=== PATIENT | female | born 1980 | race Caucasian/White ===

== ENCOUNTER 2024-03-03 11:51 | Emergency (ER) | payer BC, SELFPAY ==
[2024-03-03 11:57] VITALS: BP 137/83
[2024-03-03 12:06] VITALS: BP 107/75
[2024-03-03 12:11] VITALS: BMI 37.1
[2024-03-03 12:25] LABS: % Basophils 0.7 % (0-2); % Eosinophils 1.9 % (0-6); % Immature Granulocytes 0.3 % (0-0.5); % Lymphocytes 25.7 % (20.5-51.1); % Monocytes 4.2 % (1.7-9.3); % Neutrophils 67.2 % (42.2-75.2); Absolute Basophils 0.1 10^3/uL (0-0.2); Absolute Eosinophils 0.2 10^3/uL (0-0.7); Absolute Lymphocytes 2.7 10^3/uL (1.2-3.4); Absolute Monocytes 0.4 10^3/uL (0.1-0.6); Absolute Neutrophils 7.1 10^3/uL (1.4-6.5); Hematocrit 43.4 % (37.0-47.0); Hemoglobin 15.6 g/dL (12.0-16.0); Mean Corp Hgb Conc. 35.9 g/dL (33.0-37.0); Mean Corpuscular Hgb 30.2 pg (27.0-31.0); Mean Corpuscular Volume 83.9 fL (81.0-99.0); Nucleated Red Blood Cells % 0 %; Platelet Count 339 10^3/uL (130-400); Red Blood Cell Count 5.17 10^6/uL (4.20-5.40); White Blood Cell Count 10.5 10^3/uL (4.8-10.8)
[2024-03-03] MEDS: DILAUDID 0.5 MG IV ×2 (12:31→12:58)
[2024-03-03] MEDS: ZOFRAN 4 MG IV (12:32)
[2024-03-03] MEDS: NSS 1000 IV (12:39)
[2024-03-03 12:52] LABS: ALT (SGPT) 22 U/L (0-35); AST (SGOT) 22 U/L (14-36); Albumin 4.1 g/dl (3.5-5.0); Alkaline Phosphatase 61 U/L (38-126); Blood Urea Nitrogen 12 mg/dl (7-17); Calcium 9.5 mg/dl (8.4-10.2); Carbon Dioxide 19 mmol/L (22-30); Chloride 107 mmol/L (98-107); Estimated Creatinine Clearance 97 ml/min; Glucose 139 mg/dl (70-99); Lipase 326 U/L (23-300); Potassium 3.9 mmol/L (3.5-5.1); Sodium 136 mmol/L (135-145); Total Bilirubin 0.5 mg/dl (0.2-1.3); Total Protein 6.6 g/dl (6.3-8.2); eGFR > 60.00
[2024-03-03 13:17] LABS: HCG, Serum Qualitative Screen Negative
[2024-03-03 13:20] LABS: Troponin I < 0.012 ng/ml
--- NOTE | 2024-03-03 14:28 | ED.GENMED ---
History of Present Illness
General
Chief Complaint: Chest Pain
Source: patient and family (Mother)
Exam Limitations: none
Time Seen by Provider: 03/03/24 12:20
History of Present Illness
History of Present Illness:
Vague lower abdominal discomfort with watery diarrhea yesterday. The symptoms however resolved. In the middle of the night, around 2 AM she developed right upper quadrant pain with radiation to the back and some radiation up to her chest. Pain is
severe in nature. She had a similar episode about 6 months ago that was somewhat the same but a little more epigastric. Etiology of that was unknown. She was evaluated with labs and CTs at that time. Denies pleuritic pain denies other complaints
Past History
Past History
ED Past Medical History: Psychiatric (ADHD/anxiety/depression)
ED Past Surgical History: Appendectomy, Cholecystectomy and
Phy Exam
Physical Exam
Physical Exam:
GENERAL: Alert and oriented in no apparent distress. Nontoxic but moaning in pain. Curled on her right side
EYE: Orbits normal.
NECK: Supple
CARDIAC: Regular rate and rhythm without any obvious murmurs.
LUNGS: Clear breath sounds,normal
ABDOMEN: Soft, bowel sounds present. Elevated BMI. Moderate tenderness right upper quadrant and mild epigastric tenderness
NEUROLOGICAL: Alert and oriented , grossly non-focal
SKIN: Warm and dry, no rash or lesion, no discoloration, skin intact.
MUSCULOSKELETAL: No edema,no deformity.Good color
PSYCH: Normal and appropriate interaction..
Scores
Heart Score for Chest Pain Patients
STEMI patient?: Not applicable
Course
Orders/Labs/Results
Orders:
Orders
03/03/24 11:52
Electrocardiogram (*1) Urgent
Reason for Study: Chest Pain
EKG- Treatment ONCE
03/03/24 12:20
Complete Blood Count/With Diff Urgent
Comprehensive Metabolic Panel Urgent
HCG, Serum Qualitative Screen Urgent
Lipase Urgent
03/03/24 12:26
IV Insert/Care/Rem.- Treatment PRN
0.9% Sodium Chloride 1000 ml [Nss] 1,000 ml IV BOLUS
HYDROmorphone [Dilaudid] 0.5 mg IV NOW STA
Ondansetron Injectable [Zofran] 4 mg IV NOW STA
03/03/24 12:27
Add On- LAB Urgent
Tests Added?: qual [facility] [place] Abd/Pel (IV only)-DH only Urgent
Comment:
Reason For Exam: Severe upper abdominal pain radiation to the back
03/03/24 12:46
Troponin I Urgent
03/03/24 12:49
Ketorolac [Toradol] 15 mg .ROUTE .STK-MED ONE
03/03/24 12:51
Ketorolac [Toradol] 15 mg IV NOW STA
03/03/24 12:56
HYDROmorphone [Dilaudid] 0.5 mg .ROUTE .STK-MED ONE
03/03/24 12:57
HYDROmorphone [Dilaudid] 0.5 mg IV NOW STA
Abnormal Lab Results
03/03/24
12:20
Absolute Neuts (auto) 7.1 H 10^3/uL
(1.4-6.5)
Carbon Dioxide 19 L mmol/L
(22-30)
Glucose 139 H mg/dl
(70-99)
Lipase 326 H U/L
(23-300)
03/03/24 12:20
03/03/24 12:20
Vital Signs
Initial and Last Documented VS:
Initial Vital Signs
Temp Pulse Resp BP Pulse Ox
98.5 F 87 18 137/83 100
03/03/24 11:57 03/03/24 11:57 03/03/24 11:57 03/03/24 11:57 03/03/24 11:57
Last Documented Vital Signs
Temp Pulse Resp BP Pulse Ox
98.5 F 67 19 142/73 96
03/03/24 11:57 03/03/24 15:00 03/03/24 15:18 03/03/24 16:24 03/03/24 15:18
MDM/Problems Addressed
Differential Diagnosis Includes:
Clearly tender in the right upper quadrant. Very low suspicion for cardiac or chest issue. EKG normal. Troponin normal. Workup in progress.
*Radiology
Radiology exam reviewed: radiology read reviewed (Under distention versus colitis)
*Pulse Oximetry
Patient hypoxic: no
*EKG
Interpreted by ED Provider?: Yes
Interpretation: normal
Comparison EKG: no comparison EKG present
Heart Rate: 70
Rate: normal
Rhythm: sinus
[place]: normal axis
Interval: normal interval
QRS Pattern: normal QRS
Ischemia: no ischemia
*Critical Care Note
Total Time (30-74mins, 75-104mins- exclusive of procedures): Not Applicable
Update Note
Update Note:
Patient appears much more comfortable and feels much better. However she has received a moderate amount of pain medication. A similar episode occurred 6 months ago in [place]. At that time she was discharged from the ER but no recurring episode
but did have follow-up colonoscopy and endoscopy without diagnosis. No further ER testing from a diagnostic value. I offered her admission versus outpatient follow-up. We will observe her for the next few hours. If the symptoms remain minimal
she will likely go home to follow-up. However if symptoms recur she will be admitted to the hospital
ED Attending Note
-
Portions of this chart may have been created with voice recognition software.� Occasional wrong word or��sound alike� substitutions may have occurred due to the inherent limitations of voice recognition software.
Discharge Plan
Departure
Patient Disposition: Admit
Presentation/result/management discussed w/ accepting MD/DO: Hospitalist
Patient with high blood pressure during this ER visit?: Yes
Discharge Problem:
Right upper quadrant abdominal pain
Instructions: Abdominal Pain, Adult ED
Prescriptions:
No Action
escitalopram oxalate [Lexapro] 20 mg Tablet
20 mg PO DAILY
Dyanavel XR 10 mg Tablet, Ir - Er, Biphasic 24hr
10 mg PO DAILY
Referrals:
Akshat Morrow MD [Active] - Follow up in 5-7 days
NONE,* [Family Provider] -
Activity Restrictions/Additional Instructions:
Light diet.
Call GI for close follow-up
Return with recurrence progression of pain or if pain is not resolved in 1 to 2 days
Interventions
Interventions:
*Risk Screen - Suicide Last Done: 03/03/24 12:17
*General Assessment Last Done: 03/03/24 12:17
*Neglect/Abuse Screening Last Done: 03/03/24 12:17
ED- Fall Risk Assessment Last Done: 03/03/24 12:22
*ED COVID-19 Vaccine History Last Done: 03/03/24 12:17
*Nursing Disposition Last Done: 03/03/24 16:24
ED- Cardiac Assessment Last Done: 03/03/24 12:21
Discharge Date and Time
Discharge Date/Time: 03/03/24 16:25
Print Language: PU[place] RICAN
[2024-03-03 16:24] VITALS: BP 142/73
== END 2024-03-03 16:25 | disposition home or self-care (01) ==
LOC: EMR 11:51
PROVIDERS: EMERGENCY PHYSICIAN Emergency Medicine
DX: R10.11 Right upper quadrant pain (principal); R19.7 Diarrhea, unspecified; R07.89 Other chest pain; R03.0 Elevated blood-pressure reading, without diagnosis of hypertension; F41.9 Anxiety disorder, unspecified; F32.A Depression, unspecified; F90.9 Attention-deficit hyperactivity disorder, unspecified type; Z90.49 Acquired absence of other specified parts of digestive tract
CPT/HCPCS: 99285; 96375; 96361; 96374; 74177; 80053; 83690; 84484; 84703; 85025; 93005; Q9967

== ENCOUNTER 2024-03-04 04:09 | Observation (INO) | payer BC, SELFPAY ==
[2024-03-04] VITALS (7 sets, daily range): BP systolic 119–152; BP diastolic 57–102; BMI 40.6; BMI 39.6
--- NOTE | 2024-03-04 01:36 | ED.GENMED ---
History of Present Illness
<ARMEN Coffey (Lenka) - Last Filed: 03/04/24 03:57>
General
Chief Complaint: Abdominal Pain
Source: patient and family (mother)
Exam Limitations: clinical condition (R-lying position)
Time Seen by Provider: 03/04/24 01:14
History of Present Illness
History of Present Illness:
Pt is a 43 yo female with past surgical hx of cholecystectomy (7 years ago) and appendectomy, and PMHx of ADHD, anxiety, depression who returns to the ED after prior discharge this afternoon ( 1630) with worsening RUQ pain and feelings of upper
abdominal bloating. Pt was discharged with minimal pain after receiving Toradol and Dilaudid 0.5mg. She was able to eat yogurt without emesis, but developed nausea. Pain worsened, pt unable to sleep. She did not take any medications while at home.
Localizes pain to directly under R ribs, described as sharp pressure with new onset burning. It radiates up through her chest and around to her R back. She has had minimal fluid intake, states her mouth feels very dry. Endorses dyspnea 2/2 pain.
Denies fevers, chills, diaphoresis, DURAN, dysphagia, pelvic pain, RLQ/LUQ/LLQ pain.
2d ago pt began with lower abdominal discomfort and one episode of watery stool. No BM since. She is passing flatus and burping.
She had a similar episode about 6 months ago that was somewhat the same but a little more epigastric. Etiology of that was unknown. She was evaluated with labs and CTs at that time, then f/u with GI for endoscopy and colonoscopy with no findings.
Mother of pt states when pt had her appendectomy the surgeon stated 'there were parasites inside the appendix'.
CTAP (03/03/24)
IMPRESSION:
No acute intra-abdominal abnormality. There is apparent wall thickening of the transverse and descending colon, likely due to underdistention, rather than long segment colitis.
Prior cholecystectomy.
Past History
<ARMEN Coffey (Lenka) - Last Filed: 03/04/24 03:57>
Past History
ED Past Medical History: Psychiatric (ADHD/anxiety/depression)
ED Past Surgical History: Appendectomy ('the surgeon said that parasites were found in the appendix'), Cholecystectomy (2017 in [place]) and
Social History
Living: with family
Phy Exam
<ARMEN Coffey (Lenka) - Last Filed: 03/04/24 03:57>
General Physical Exam
General Presentation: severe distress (pt laying in R-sided position moaning in pain)
General age: appears stated age
General Skin: warm and dry
General Habitus: obese
General Mental: anxious and tearful
General Hydration: other (MMM, but pt complaining of dry mouth)
Cardiovascular Exam
Cardiovascular Exam: regular rate/rhythm, no edema, no gallop and normal peripheral pulses
Pulmonary Exam
Pulmonary Exam: lungs clear, no respiratory distress, no rales, no rhonchi and no cough
Gastrointestinal Exam
Gastrointestinal Exam: tender (RUQ) and other (no tympany)
Palpation: left upper quadrant: No tenderness, left lower quadrant: No tenderness, right upper quadrant: Moderate tenderness and right lower quadrant: Minimal tenderness
Course
<ARMEN Coffey (Lenka) - Last Filed: 03/04/24 03:57>
Orders/Labs/Results
Orders:
Orders
03/04/24 01:43
US Abdomen Complete/Upper Urgent
Comment:
Reason For Exam: severe RUQ
03/04/24 02:00
Complete Blood Count/With Diff Urgent
Comprehensive Metabolic Panel Urgent
Lipase Urgent
03/04/24 02:02
Lactic Acid Urgent
03/04/24 02:06
HYDROmorphone [Dilaudid] 0.5 mg IV NOW STA
03/04/24 03:24
Urinalysis Reflex To Culture Urgent
Date Specimen was Collected: 03/04/24
Time Specimen was Collected: 03:20
Abnormal Lab Results
03/04/24
02:00
WBC 12.2 H 10^3/uL
(4.8-10.8)
Absolute Neuts (auto) 7.9 H 10^3/uL
(1.4-6.5)
Absolute Monos (auto) 0.8 H 10^3/uL
(0.1-0.6)
Carbon Dioxide 19 L mmol/L
(22-30)
03/04/24 02:00
03/04/24 02:00
Vital Signs
Initial and Last Documented VS:
Initial Vital Signs
Temp Pulse Resp BP Pulse Ox
97.4 F 76 30 152/102 96
03/04/24 00:28 03/04/24 00:28 03/04/24 00:28 03/04/24 00:28 03/04/24 00:28
Last Documented Vital Signs
Temp Pulse Resp BP Pulse Ox
97.4 F 78 16 130/63 97
03/04/24 00:28 03/04/24 02:18 03/04/24 02:18 03/04/24 02:18 03/04/24 02:18
<Kayden Cain, DO - Last Filed: 03/04/24 03:29>
Orders/Labs/Results
Orders:
Orders
03/04/24 01:43
US Abdomen Complete/Upper Urgent
Comment:
Reason For Exam: severe RUQ
03/04/24 02:00
Complete Blood Count/With Diff Urgent
Comprehensive Metabolic Panel Urgent
Lipase Urgent
03/04/24 02:02
Lactic Acid Urgent
03/04/24 02:06
HYDROmorphone [Dilaudid] 0.5 mg IV NOW STA
03/04/24 03:24
Urinalysis Reflex To Culture Urgent
Date Specimen was Collected: 03/04/24
Time Specimen was Collected: 03:20
Abnormal Lab Results
03/04/24
02:00
WBC 12.2 H 10^3/uL
(4.8-10.8)
Absolute Neuts (auto) 7.9 H 10^3/uL
(1.4-6.5)
Absolute Monos (auto) 0.8 H 10^3/uL
(0.1-0.6)
Carbon Dioxide 19 L mmol/L
(22-30)
03/04/24 02:00
03/04/24 02:00
Vital Signs
Initial and Last Documented VS:
Initial Vital Signs
Temp Pulse Resp BP Pulse Ox
97.4 F 76 30 152/102 96
03/04/24 00:28 03/04/24 00:28 03/04/24 00:28 03/04/24 00:28 03/04/24 00:28
Last Documented Vital Signs
Temp Pulse Resp BP Pulse Ox
97.4 F 78 16 130/63 97
03/04/24 00:28 03/04/24 02:18 03/04/24 02:18 03/04/24 02:18 03/04/24 02:18
<ARMEN Coffey (Lenka) - Last Filed: 03/04/24 03:57>
MDM/Problems Addressed
Differential Diagnosis Includes:
DDx: hepatitis vs constipation vs acute mesenteric ischemia
Pt in acute distress in room, laying in R-sided position gripping her RUQ, returning to ED 8 hours after discharge with worsening RUQ + nausea. No emesis, no systemic symptoms. Pt tender to RUQ upon palpation, but mild-moderately, pain
possibly OOP to exam. Will obtain complete abdominal U/S, repeat CBC/CMP to compare to prior, with possible lactic acid and CTA abdomen depending on findings of CBC/CMP and U/S.
Prior note from earlier visit suggested hospital admission if symptoms recur after discharge.
<Kayden Cain DO - Last Filed: 03/04/24 03:29>
MDM/Problems Addressed
Differential Diagnosis Includes:
DDx: hepatitis vs constipation vs acute mesenteric ischemia, Docolithiasis
Pt in acute distress in room, laying in R-sided position gripping her RUQ, returning to ED 8 hours after discharge with worsening RUQ + nausea. No emesis, no systemic symptoms. Pt tender to RUQ upon palpation, but mild-moderately, pain
possibly OOP to exam. Will obtain complete abdominal U/S, repeat CBC/CMP to compare to prior, with possible lactic acid and CTA abdomen depending on findings of CBC/CMP and U/S.
Prior note from earlier visit suggested hospital admission if symptoms recur after discharge.
<ARMEN Coffey (Lenka) - Last Filed: 03/04/24 03:57>
*Critical Care Note
Total Time (30-74mins, 75-104mins- exclusive of procedures): Not Applicable
<DO Omer Vega Last Filed: 03/04/24 03:29>
Patient Management
Social determinants of health affecting care: Living situation (Just moved to the area) and Strong social support
Discussion with other providers: Hospitalist
<ARMEN Coffey (Lenka) - Last Filed: 03/04/24 03:57>
Update Note
Update Note:
WBC increased from 10.5 (03/03, 1220) to 12.2 (03/04, 0200).
<Kayden Cain DO - Last Filed: 03/04/24 03:29>
Update Note
Update Note:
WBC increased from 10.5 (8/18, 1220) to 12.2 (03/04, 0200).
Comparison: CT abdomen and pelvis 03/03/2024
IMPRESSION:
no acute findings
Cholecystectomy. No significant ductal dilation
Diffuse increased hepatic echogenicity suggesting steatosis
Small hepatic cyst noted
Pancreas also appears increased in echogenicity which may be related to partial fatty infiltration demonstrated on CT.
Right kidney appears normal
No appreciable free fluid
Discussed this patient with the hospitalist. The patient to be brought in for continued observation and possible further testing.
ED Attending Note
<ARMEN Coffey (Lenka) - Last Filed: 03/04/24 03:57>
-
Portions of this chart may have been created with voice recognition software.� Occasional wrong word or��sound alike� substitutions may have occurred due to the inherent limitations of voice recognition software.
<Kayden Cain DO - Last Filed: 03/04/24 03:29>
ED Attending Note
Patient seen and examined by attending physician: Yes
I performed the substantive portion of visit, reviewed & personally made and approve the management plan that is documented in note by myself or MULUGETA.: Yes
ED Attending Note:
Pleasant 43-year-old female who presents with right upper quadrant abdominal pain. Was seen in the emergency department earlier today. Had a CAT scan. She received Toradol and Dilaudid. She was able to eat without issue but developed some nausea
and vomiting. She states that she was unable to sleep. She states that the pain is localized to under her right ribs. She reports it is similar to previous gallbladder pain but reports having a cholecystectomy years ago. She denies fever or
chills. She does not have any other abdominal pain. Patient has had no issues with bowel movements. Patient recently moved here from [place]. She does not have an established physicians in the area. CT scan reviewed. Patient was seen in
conjunction with the PA student. I have reviewed and agree with the history and treatment plan presented. On my independent physical exam, patient is awake, alert, and oriented x3, minimal acute distress after receiving a dose of Dilaudid. Heart
is regular rate and rhythm. Lungs are clear to auscultation bilaterally without wheezes rales or rhonchi present. Negative McBurney's point tenderness. Negative Mckeon sign. Good bowel sounds x 4 quadrants.
Plan is to admit patient for continued observation and further testing.
Discharge Plan
Departure
Patient Disposition: Admit
Date of Disposition: 03/04/24
Time of Disposition: 03:28
Admit to: Med/Surg
Presentation/result/management discussed w/ accepting MD/DO: Hospitalist
Discharge Problem:
Abdominal pain, Nausea & vomiting
Prescriptions:
No Action
escitalopram oxalate [Lexapro] 20 mg Tablet
20 mg PO DAILY
Dyanavel XR 10 mg Tablet, Ir - Er, Biphasic 24hr
10 mg PO DAILY
Referrals:
NONE,* [Family Provider] -
Interventions
Interventions:
*Risk Screen - Suicide Last Done: 03/04/24 00:28
*General Assessment Last Done: 03/04/24 01:36
*Neglect/Abuse Screening Last Done: 03/04/24 00:28
ED- Fall Risk Assessment Last Done: 03/04/24 02:21
*ED COVID-19 Vaccine History Last Done: 03/04/24 01:38
WU-Jcnexr-Lmqmnbmbyq Assessment Last Done: 03/04/24 02:21
Discharge Date and Time
Print Language: GREENLANDIC
--- NOTE | 2024-03-04 02:03 | EDRN ---
Blood obtained from R ACF without difficulty - pressure dressing applied. EDT came in to take pt to US however pt says she needs pain medication before she goes to US. Dr Cain has not evaluated pt yet - Dr Cain informed of pt's request.
[2024-03-04 02:06] LABS: % Basophils 0.7 % (0-2); % Eosinophils 2.8 % (0-6); % Immature Granulocytes 0.2 % (0-0.5); % Monocytes 6.6 % (1.7-9.3); % Neutrophils 64.7 % (42.2-75.2); Absolute Basophils 0.1 10^3/uL (0-0.2); Absolute Eosinophils 0.3 10^3/uL (0-0.7); Absolute Monocytes 0.8 10^3/uL (0.1-0.6); Absolute Neutrophils 7.9 10^3/uL (1.4-6.5); Hematocrit 42.1 % (37.0-47.0); Hemoglobin 14.9 g/dL (12.0-16.0); Mean Corp Hgb Conc. 35.4 g/dL (33.0-37.0); Mean Corpuscular Hgb 30.8 pg (27.0-31.0); Mean Platelet Volume 9.9 fL (7.4-10.4); Nucleated Red Blood Cells % 0 %; Platelet Count 307 10^3/uL (130-400); Red Blood Cell Count 4.84 10^6/uL (4.20-5.40); White Blood Cell Count 12.2 10^3/uL (4.8-10.8)
--- NOTE | 2024-03-04 02:07 | EDRN ---
Dr Cain informed labs were drawn as he ordered, pt stuck twice to obtain blood/iv. There is now an order for a lactic. Dr Cain said can wait to draw lactic until result of US.
[2024-03-04] MEDS: DILAUDID 0.5 MG IV ×5 (02:12→21:34)
--- NOTE | 2024-03-04 02:25 | EDRN ---
Pt developed RUQ pain 0300 yesterday morning associated with nausea, poor appetite. Pt came to ED yesterday morning and was evaluated for this pain. Pt says she was not given a diagnosis for her pain and has been having this pain 'for quite a
while' and no one has ever been able to tell her why she has it. Pt felt better and went home around 1700 yesterday however she said pain was never completely gone, just a lot better. Pt ate a yogurt and the pain worsened which prompted pt to
return to ED. Pt denies cp, sob, urinary symptoms, vomiting, diarrhea/constipation, fever/chills/cough. Pt has reddened around in R ACF most likely from tegaderm used yesterday on IV site. Discussed with VAT how to best secure new IV - this RN
cut small piece of tegaderm and placed just over iv catheter then applied paper tape.
[2024-03-04 02:41] LABS: ALT (SGPT) 23 U/L (0-35); AST (SGOT) 24 U/L (14-36); Albumin 4.2 g/dl (3.5-5.0); Alkaline Phosphatase 62 U/L (38-126); Blood Urea Nitrogen 8 mg/dl (7-17); Calcium 9.5 mg/dl (8.4-10.2); Carbon Dioxide 19 mmol/L (22-30); Chloride 107 mmol/L (98-107); Estimated Creatinine Clearance 115 ml/min; Glucose 99 mg/dl (70-99); Lipase 85 U/L (23-300); Sodium 136 mmol/L (135-145); Total Bilirubin 0.5 mg/dl (0.2-1.3); Total Protein 6.7 g/dl (6.3-8.2); eGFR > 60.00
[2024-03-04 03:31] LABS: Urine Albumin Negative (Neg - Trace); Urine Bilirubin Negative (Negative); Urine Character Clear (Clear); Urine Color Yellow; Urine Glucose Negative (Negative); Urine Ketone Negative (Negative); Urine Leukocyte Negative (Negative); Urine Nitrite Negative (Negative); Urine Occult Blood Negative (Negative); Urine Urobilinogen Negative (Neg - 1+)
--- NOTE | 2024-03-04 03:55 | HPS.HSE ---
Family Physician
-
Family Physician: * NONE
Chief Complaint
-
abdominal pain
History of Present Illness
43F HX ADHD, anxiety, depression, cholecystectomy (7 years ago) and appendectomy, seen at ER yesterday for abdominal pain: Associated upper abdominal bloating. Pt was discharged with minimal pain after receiving Toradol and Dilaudid 0.5mg. She
was able to eat yogurt without emesis, but developed nausea. Pain worsened, pt unable to sleep. She did not take any medications while at home.
return to ER with pain mre Localizes to directly under R ribs, described as sharp pressure with new onset burning. It radiates up through her chest and around to her R back. She has had minimal fluid intake, states her mouth feels very dry.
Endorses dyspnea 2/2 pain.
HX similar episode about 6 months ago that was somewhat the same but a little more epigastric but unclear etiolgy
Evaluated with labs and CTs at that time, then f/u with GI for endoscopy and colonoscopy with no findings
ROS
Denies fevers, chills, diaphoresis, DURAN, dysphagia, pelvic pain, RLQ/LUQ/LLQ pain.
Medical History
Past Medical History
Past Medical History: Reports Psychiatric (ADHD/anxiety/depression)
Past Surgical History: Reports Other (Appendectomy ('the surgeon said that parasites were found in the appendix'), Cholecystectomy (2017 in [place]) and )
Social History
Tobacco: Non-smoker
Alcohol: None
Living: With Family
Family History
Family History: Not pertinent
Allergies / Home Medications
Allergies reflects when Allergies were last updated in [facility].
Home Medications with original date entered in [facility]
Allergy/Medication List:
Allergies
Allergy/AdvReac Type Severity Reaction Status Date / Time
celecoxib [From Celebrex] Allergy Mild Unknown Verified 03/04/24 00:32
adhesive tape Allergy Unknown Verified 03/04/24 00:32
bupropion [From Wellbutrin] Allergy Unknown Verified 03/04/24 00:32
latex Allergy Unknown Verified 03/04/24 00:32
Home Medications
amphetamine 10 mg tablet, immediate and extended release 24 hour (Dyanavel XR) 10 mg PO DAILY 03/04/24
escitalopram oxalate 20 mg tablet (Lexapro) 20 mg PO DAILY 03/04/24
Review of Systems
-
Constitutional: Reports No Symptoms
EENT: Reports No Symptoms
Respiratory: Reports No Symptoms
Cardiac: Reports No Symptoms
Abdomen/GI: Reports See HPI and Abdominal Pain
: Reports No Symptoms
Musculoskeletal: Reports No Symptoms
Skin: Reports No Symptoms
Neurological: Reports No Symptoms
Endocrine: Reports No Symptoms
Hematologic/Lymphatic: Reports No Symptoms
Psych: Reports No Symptoms
Physical Exam
Vital Signs
Vital Signs
Temp Pulse Resp BP Pulse Ox
97.4 F 78 16 130/63 97
03/04/24 00:28 03/04/24 02:18 03/04/24 02:18 03/04/24 02:18 03/04/24 02:18
Physical Exam
General: Comfortable, Conversant and Obese
HEENT: NormoCephalic and Anicteric
Respiratory: Clear
Cardiac: S1/S2 and Regular Rhythm; No Murmur or Rub
GI: Soft, Non Tender, Non Distended and Normal Bowel Sounds; No Organomegaly
Rectal: Deferred by Provider
Musculoskeletal: No Clubbing, No Cyanosis and No Edema
Skin: No Rash
Neuro: Nonfocal/grossly intact
Psych: Calm
Laboratory Results
-
03/04/24 02:00
03/04/24 02:00
Laboratory Results
Total Bilirubin 0.5 mg/dl (0.2-1.3) 03/04/24 02:00
AST 24 U/L (14-36) 03/04/24 02:00
ALT 23 U/L (0-35) 03/04/24 02:00
Alkaline Phosphatase 62 U/L (38-126) 03/04/24 02:00
Lipase 85 U/L (23-300) 03/04/24 02:00
Data Reviewed
-
CT Scan: Report Reviewed by me
Lab Data: Labs Reviewed by me
Impression/Plan
-
Data
WCC 12.2
CO2 19
nl LFTs
NEG UA
CT AP
- No significant ductal dilatation
- cholecystectomy
- hepatic steatosis
NO PRIOR hospitalist admission:
ASSESSMENT & PLAN
Acute Abdominal pain of unclear etiolgy
- Mild leucocytosis
- Unremarkable labs
- Unremarkable CT AP
- hemodynamically stable
- Clear diet - ADAT
- PRN IV Toradol
- GI consult in AM
HX ADHD
- cont all OP Meds
DVT Px: LMWH
Code: Full code
Obs MS
[2024-03-04] MEDS: NSS 1000 IV ×2 (06:04→17:31)
[2024-03-04] MEDS: ZOFRAN 4 MG IV ×3 (06:04→21:35)
--- NOTE | 2024-03-04 08:47 | W.PN.HOSP.TC ---
Today's Communication/Plan
-
GI consult
continue IVF
continue clear liquids for now
Protonix for now
Assessment / Plan
Assessment / Plan
Acute Abdominal pain of unclear etiology
similar episode in [place] (pt moved to this area from [place] 1 wk [employer]) about 6 mos ago. Was seen by GI, underwent CT scan, US, and was seen by GI undergoing EGD and [place], all nl.
This episode pt had a hot dog at movie theatre Monday night (03/01) and developed diarrhea x2 Monday afternoon (diarrhea has fully resolved), with associated pain that started Monday and has continued. Seen in ER Monday, went
home, but pain continued and returned
- Mild leucocytosis
WBC 10.5-->12.2k
- CT of abd/pelvis: No acute intra-abdominal abnormality. There is apparent wall thickening of the transverse and descending colon, likely due to underdistention, rather than long segment colitis.
- hemodynamically stable
- Clear diet - ADAT
US pending
- PRN IV Toradol
- GI consulted
Hx of Cholecystectomy ~7 yrs [employer]
pain of similar nature, but was epigastric, current episode in [facility] pt
HX ADHD
- cont all OP Meds
Cigs -has been smoking >20 yrs, but has significantly reduced daily intake. Offered patch, pt declines
DVT Px: LMWH
Code: Full code
Obs MS
Anticipated Discharge: 24 - 48 hours
Subjective/Interval History
-
Date of Service: March 04, 2024
Still with RUQ pain
Objective Data
-
Labs:
Laboratory Results
03/04/24
02:00
WBC 12.2 H
Hgb 14.9
Hct 42.1
Plt Count 307
Sodium 136
Potassium 4.0
Chloride 107
Carbon Dioxide 19 L
BUN 8
Creatinine 0.8
Glucose 99
Calcium 9.5
Total Bilirubin 0.5
AST 24
ALT 23
Alkaline Phosphatase 62
Vital Signs:
Vital Signs
Temp Pulse Resp BP Pulse Ox
98.3 F 62 18 140/89 98
03/04/24 05:33 03/04/24 05:33 03/04/24 05:33 03/04/24 05:33 03/04/24 05:33
Review of Systems
-
History Source: Patient
Constitutional: Denies Fever
EENT: Reports No Symptoms Reported
Respiratory: Reports No Symptoms
Cardiac: Reports No Symptoms
Abdomen/GI: Reports Abdominal Pain and Diarrhea (last episode 03/02 mid afternoon); Denies Nausea or Vomiting
Musculoskeletal: Reports No Symptoms
Neuro: Reports No Symptoms
Physical Exam
-
General: Well Developed, Well Nourished and No Apparent Distress
HEENT: Normocephalic, Atraumatic and Moist Mucous Membranes
Respiratory: Clear to Auscultation; Negative Wheezes, Rales or Rhonchi
Cardiac: Regular Rhythm and S1/S2
GI: Soft and Tender; Negative Normal Bowel Sounds (decreased BS)
Musculoskeletal: No Clubbing, No Cyanosis and No Edema
Neuro: Awake, Alert and Oriented
[2024-03-04] MEDS: LEXAPRO 20 MG PO (08:51)
[2024-03-04] MEDS: PROTONIX IV 40 MG IV (09:32)
[2024-03-04] MEDS: NSS (PRESERVATIVE FREE) 10 ML IV (09:33)
--- NOTE | 2024-03-04 12:44 | CM ---
Addendum entered by Sanam Proctor RN 03/04/24 12:46:
The patient is admitted under observational status. The observation letter was provided and explained. The patient had no questions with regards to the letter.
Original Note:
Reviewed the chart notes and spoke with the patient at the bedside. The patient resides in a three story home with basement with her daughter and mother. The patient reports on DME is a CPAP machine. The patient reports no VN or SNF in the past.
The patient confirmed her pharmacy of choice is the [facility] [address]. CM continues to be available to patient/family and is monitoring medical plan for needs at discharge.
Plan: Discharge to home when medically stable. No anticipated needs identified at this time.
--- NOTE | 2024-03-04 13:48 | CON.GI ---
Addendum entered and electronically signed by Akshat Morrow MD 03/04/24 18:18:
I saw and examined the patient.
The TRANSIT OPERATIONS SUPERVISOR's note was reviewed and I agree with the note.
Abdominal pain -mainly right upper quadrant. History of cholecystectomy. Liver test/ lipase normal. Imaging grossly unremarkable other than fatty liver.no biliary dilatation . Etiology of pain not clear. Patient claims 6 months back she had
extensive GI workup for the similar symptom in [place] and they were unremarkable. No records available to review. Patient is currently on zepbound for the last 2 months
plan
Would recommend getting prior GI records from [place]
Patient claims she cannot tolerate Levsin. Will DC hyoscyamine and try dicyclomine as needed
low-fat diet
Will recommend discussing with PCP regarding use of zepbound in the future
Original Note:
Consultation
-
Date/Time Consultation Requested: 03/04/24 0520
Date/Time Consultation Performed: 03/04/24 1330
Requesting Provider: Selwyn Ashraf MD
Performing Provider: AMADOU Eugene, Akshat Morrow MD
Reason for Consultation: abdominal pain
Medical History
Chief Complaint / HPI
Chief Complaint: abdominal pain
History of Present Illness:
Pt is a 43yo with hx ADHD, anxiety, depression, adrián, appe with upper abdominal pain with bloating. On admission noted with WBC 12,200 with normal LFT's and lipase. Imaging with CT with no intraabdominal abnormality with wall thickening
transverse and descending with underdistention rather than colitis and prior adrián. In reviewing with patient she was noted with hx similar pain when gallbladder was removed several years ago. She states she was well for years then began with 6
month ago with similar pain and work up in [place]. She had multiple testing including, CT, US, EGD, colonoscopy all unrevealing. She admits about 2 months ago she started Zepbound and now presents with recurrent pain after [place] [employer]. She admits to diarrhea prior to admission that resolved. Pain she describes initially lower pain with diarrhea then RUQ pain with distended, sharp pressure with waves of worsening pain. Improved with pain meds. Worse at night and
with some positional pain. She also admits to some nausea and dry heave with pain. She has hx GERD worse with Zepbound and Pepcid was added. She denies dysphagia, vomiting, constipation or bleeding. Denies travel, abx and only new med was
Dyanavel.
Past Medical History
Past Medical History: Psychiatric (ADHD, depression)
Past Surgical History: Appendectomy and Cholecystectomy
Social History
Tobacco: Smoker (5-10 cig per day )
Alcohol: None
Drug: None
Personal:
Living: With Family
Employment: Employed
Family History
Family History: Other (grandmother with colon CA)
Allergies / Home Medications
Allergy/AdvReac Type Severity Reaction Status Date / Time
celecoxib [From Celebrex] Allergy Severe Anaphylaxis Verified 03/04/24 05:39
adhesive tape Allergy Unknown Verified 03/04/24 00:32
bupropion [From Wellbutrin] Allergy Unknown Verified 03/04/24 00:32
latex Allergy Unknown Verified 03/04/24 00:32
�Medication �Instructions �Recorded
amphetamine 10 mg tablet, 10 mg PO DAILY 03/04/24
immediate and extended release 24
hour (Dyanavel XR)
escitalopram oxalate 20 mg tablet 20 mg PO DAILY 03/04/24
(Lexapro)
Review of Systems
-
History Source: Patient
Constitutional: Reports Weight Loss ( 10 lbs with Zepbound )
EENT: Reports No Symptoms
Respiratory: Reports No Symptoms
Cardiac: Reports No Symptoms
Abdomen/GI: Reports Abdominal Pain, Nausea (dry heaves ) and Constipated
: Reports No Symptoms
Musculoskeletal: Reports No Symptoms
Skin: Reports No Symptoms
Neurological: Reports Weakness
Endocrine: Reports No Symptoms
Hematologic/Lymphatic: Reports No Symptoms
Vital Signs
Temp Pulse Resp BP Pulse Ox
98.0 F 60 18 126/66 95
03/04/24 07:45 03/04/24 07:45 03/04/24 07:45 03/04/24 07:45 03/04/24 07:45
Physical Exam
Exam
General: Well Developed, Well Nourished and No Apparent Distress
HEENT: Normocephalic and Anicteric
Respiratory: Clear and Wheezes
Cardiac: Regular Rhythm
GI: Soft, Non Tender and Non Distended
Musculoskeletal: No Clubbing and No Cyanosis
Skin: Warm and Dry
Neuro: Awake, Alert and AO x 3
Psych: Calm
Results
WBC 12.2 10^3/uL (4.8-10.8) H 03/04/24 02:00
Hgb 14.9 g/dL (12.0-16.0) 03/04/24 02:00
Hct 42.1 % (37.0-47.0) 03/04/24 02:00
MCV 87.0 fL (81.0-99.0) 03/04/24 02:00
Plt Count 307 10^3/uL (130-400) 03/04/24 02:00
Absolute Neuts (auto) 7.9 10^3/uL (1.4-6.5) H 03/04/24 02:00
Sodium 136 mmol/L (135-145) 03/04/24 02:00
Potassium 4.0 mmol/L (3.5-5.1) 03/04/24 02:00
Chloride 107 mmol/L (98-107) 03/04/24 02:00
Carbon Dioxide 19 mmol/L (22-30) L 03/04/24 02:00
BUN 8 mg/dl (7-17) 03/04/24 02:00
Creatinine 0.8 mg/dL (0.6-1.0) 03/04/24 02:00
Calcium 9.5 mg/dl (8.4-10.2) 03/04/24 02:00
Total Bilirubin 0.5 mg/dl (0.2-1.3) 03/04/24 02:00
AST 24 U/L (14-36) 03/04/24 02:00
ALT 23 U/L (0-35) 03/04/24 02:00
Alkaline Phosphatase 62 U/L (38-126) 03/04/24 02:00
Lipase 85 U/L (23-300) 03/04/24 02:00
Diagnostic Image Results:
03/03/24 CT Abd/Pel (IV only)-DH only
No acute intra-abdominal abnormality. There is apparent wall thickening of the transverse and descending colon, likely due to underdistention, rather than long segment colitis.
Prior cholecystectomy.
03/04/24 US abdomen
1. No evidence of cholelithiasis, acute cholecystitis, or biliary ductal dilation.
2. Suggestive of diffuse fatty infiltration of liver.
Prior GI Procedures:
EGD: pt recalls as normal 6 months ago
Colonoscopy: pt recalls as normal 6 months ago
Assessment / Plan
-
Pt is a 43yo with hx ADHD, anxiety, depression, adrián, appe with upper abdominal pain with bloating. On admission noted with WBC 12,200 with normal LFT's and lipase. Imaging with CT with no intraabdominal abnormality with wall thickening
transverse and descending with underdistention rather than colitis and prior adrián. In reviewing with patient she was noted with hx similar pain when gallbladder was removed several years ago. She states she was well for years then began with 6
month ago with similar pain and work up in [place]. She had multiple testing including, CT, US, EGD, colonoscopy all unrevealing. She admits about 2 months ago she started Zepbound and now presents with recurrent pain after eating a [place] [employer]. She admits to diarrhea prior to admission that resolved. Pain she describes initially lower pain with diarrhea then RUQ pain with distended, sharp pressure with waves of worsening pain. Improved with pain meds. Worse at night and
with some positional pain. She also admits to some nausea and dry heave with pain. She has hx GERD worse with Zepbound and Pepcid was added. She denies dysphagia, vomiting, constipation or bleeding. Denies travel, abx and only new med was
Dyanavel.
-RUQ abdominal pain
-recent lower abdominal pain with diarrhea
-CT with underdistention vs transverse/descending colitis
-mild leukocytosis
-hx similar pain 6 months ago with extensive work up
-prior adrián
-appe
-recent wt loss with use of Zepbound
-GERD with increased symptoms with Zepbound use
PLAN:
etiology of symptoms unclear -- possible colitis per CT vs underdistention- infectious related, med related pt started Zepbound but pt was not on medication with similar episode 6 months ago vs Dyanavel related at does list some risk of upper
abdominal pain , muscular related vs other - doubt biliary with normal LFT's and lipase
pt currently with some improved pain
pt asking for increased diet-- will trial low fat diet
repeat LFT's and lipase in am
add Hyoscyamine PRN
consider OP Small bowel imaging if symptoms persist
if continue symptoms consider reviewed with primary MD for side effects of Zepbound and Dyanavel
trend WBC's with some elevation
will follow
-
-
-
Thank you for consultation and allowing me to participate in the patient's care. Please call the recycling operations manager GI physician during the after hours with any questions or concerns.
[2024-03-04] MEDS: TYLENOL 650 MG PO (17:35)
[2024-03-04] MEDS: BENTYL 20 MG PO (21:43)
[2024-03-05] MEDS: DILAUDID 0.5 MG IV ×4 (02:10→17:59)
[2024-03-05 07:40] VITALS: BP 134/83
[2024-03-05] MEDS: ZOFRAN 4 MG IV ×2 (08:42→17:59)
[2024-03-05] MEDS: NSS 1000 IV (08:42)
[2024-03-05] MEDS: BENTYL 20 MG PO ×3 (08:44→21:36)
[2024-03-05] MEDS: NSS (PRESERVATIVE FREE) 10 ML IV (08:44)
[2024-03-05] MEDS: LEXAPRO 20 MG PO (08:44)
[2024-03-05] MEDS: PROTONIX IV 40 MG IV (08:44)
[2024-03-05 08:58] LABS: Hematocrit 44.7 % (37.0-47.0); Hemoglobin 15.5 g/dL (12.0-16.0); Mean Corp Hgb Conc. 34.7 g/dL (33.0-37.0); Mean Corpuscular Volume 89.4 fL (81.0-99.0); Mean Platelet Volume 10.1 fL (7.4-10.4); Platelet Count 311 10^3/uL (130-400); Red Cell Dist. Width 13.2 % (11.5-14.5); White Blood Cell Count 8.6 10^3/uL (4.8-10.8)
[2024-03-05 09:32] LABS: ALT (SGPT) 25 U/L (0-35); AST (SGOT) 24 U/L (14-36); Albumin 3.8 g/dl (3.5-5.0); Alkaline Phosphatase 58 U/L (38-126); Blood Urea Nitrogen 10 mg/dl (7-17); Carbon Dioxide 23 mmol/L (22-30); Chloride 105 mmol/L (98-107); Estimated Creatinine Clearance 101 ml/min; Glucose 101 mg/dl (70-99); Lipase 100 U/L (23-300); Potassium 4.5 mmol/L (3.5-5.1); Sodium 137 mmol/L (135-145); Total Bilirubin 0.5 mg/dl (0.2-1.3); Total Protein 6.3 g/dl (6.3-8.2); eGFR > 60.00
--- NOTE | 2024-03-05 10:26 | W.PN.HOSP.TC ---
Today's Communication/Plan
-
MRCP
stop IVF
Assessment / Plan
Assessment / Plan
Acute Abdominal pain of unclear etiology
similar episode in [place] (pt moved to this area from [place] 1 wk [employer]) about 6 mos ago. Was seen by GI, underwent CT scan, US, and was seen by GI undergoing EGD and [place], all nl.
This episode pt [place] (03[place]01) and developed diarrhea x2 Monday afternoon (diarrhea has fully resolved), with associated pain that started Monday and has continued. Seen in ER Monday, went
home, but pain continued and returned
- Mild leucocytosis resolved
WBC 10.5-->12.2-->8.6k
LFT's nl x 2
- CT of abd/pelvis: No acute intra-abdominal abnormality. There is apparent wall thickening of the transverse and descending colon, likely due to underdistention, rather than long segment colitis.
- Clear diet -->chol reducing
US: 1. No evidence of cholelithiasis, acute cholecystitis, or biliary ductal dilation.
2. Suggestive of diffuse fatty infiltration of liver.
- PRN IV Toradol
- GI consulted, input appreciated
discussed with AMADOU Traore, requested I enter order for MRCP
etio of process remains unclear. Pt still in pain. ?does Zepbound play a roll in the pain (GLP-1 inhibitor)
Hx of Cholecystectomy ~7 yrs [employer]
pain of similar nature, but was epigastric, current episode in [facility] pt and slightly lateral
HX ADHD
- cont all OP Meds
Cigs -has been smoking >20 yrs, but has significantly reduced daily intake. Offered patch, pt declines
discussed importance of stopping, pt fully acknowledges
DVT Px: LMWH
Code: Full code
Obs MS
Anticipated Discharge: 24 - 48 hours
Subjective/Interval History
-
Date of Service: March 05, 2024
Still with severe RUQ abdominal pain, intensified ~3AM, +nausea, no vomiting or diarrhea
Objective Data
-
Labs:
Laboratory Results
03/05/24
08:34
WBC 8.6
Hgb 15.5
Hct 44.7
Plt Count 311
Sodium 137
Potassium 4.5
Chloride 105
Carbon Dioxide 23
BUN 10
Creatinine 0.9
Glucose 101 H
Calcium 9.0
Total Bilirubin 0.5
AST 24
ALT 25
Alkaline Phosphatase 58
Vital Signs:
Vital Signs
Temp Pulse Resp BP Pulse Ox
98.1 F 64 14 134/83 95
03/05/24 07:40 03/05/24 07:40 03/05/24 07:40 03/05/24 07:40 03/05/24 07:40
I&O
03/04/24 03/05/24 03/06/24
06:59 06:59 06:59
Intake Total 3520 / 3520
Balance 3520 / 3520
Review of Systems
-
History Source: Patient
Constitutional: Denies Fever
EENT: Reports No Symptoms Reported
Respiratory: Reports No Symptoms
Cardiac: Reports No Symptoms
Abdomen/GI: Reports Abdominal Pain, Nausea (this morning) and Diarrhea (last episode 03/02 mid afternoon); Denies Vomiting
Musculoskeletal: Reports No Symptoms
Neuro: Reports No Symptoms
Physical Exam
-
General: Well Developed, Well Nourished and No Apparent Distress
HEENT: Normocephalic, Atraumatic and Moist Mucous Membranes
Respiratory: Clear to Auscultation; Negative Wheezes, Rales or Rhonchi
Cardiac: Regular Rhythm and S1/S2
GI: Soft and Tender (remains very tender); Negative Normal Bowel Sounds (decreased BS, but more prominent than yesterday)
Musculoskeletal: No Clubbing, No Cyanosis and No Edema
Neuro: Awake, Alert and Oriented
--- NOTE | 2024-03-05 10:55 | CM ---
Reviewed the chart notes. MRCP order placed today. CM continues to be available to patient/family and is monitoring medical plan for needs at discharge.
Plan: Discharge to home when medically stable. No anticipated needs identified at this time.
--- NOTE | 2024-03-05 14:36 | W.PN.GI.CBS2 ---
Today's Communication / Plan
-
Await MRI/MRCP, but LFTs normal, lowering suspicion for CBD stone post adrián
Start miralax since she is constipated likely due to pain meds. It may be even contributing to pain
Post infectious IBS is possibility since sx started after eating hot dog at the [employer] on Monday
If w/u negative, consider EGD.
Cont Dicyclomine
Cont lexapro, can be helpful for IBS pain too.
Assessment / Plan
-
Pt is a 43yo with hx ADHD, anxiety, depression, adrián, appe with upper abdominal pain with bloating. On admission noted with WBC 12,200 with normal LFT's and lipase. Imaging with CT with no intraabdominal abnormality with wall thickening
transverse and descending with underdistention rather than colitis and prior ardián. In reviewing with patient she was noted with hx similar pain when gallbladder was removed several years ago. She states she was well for years then began with 6
month ago with similar pain and work up in [place]. She had multiple testing including, CT, US, EGD, colonoscopy all unrevealing. She admits about 2 months ago she started Zepbound and now presents with recurrent pain after eating a hot dog
at [place] [employer]. She admits to diarrhea prior to admission that resolved. Pain she describes initially lower pain with diarrhea then RUQ pain with distended, sharp pressure with waves of worsening pain. Improved with pain meds. Worse at night and
with some positional pain. She also admits to some nausea and dry heave with pain. She has hx GERD worse with Zepbound and Pepcid was added. She denies dysphagia, vomiting, constipation or bleeding. Denies travel, abx and only new med was
Dyanavel.
-RUQ abdominal pain
-recent lower abdominal pain with diarrhea
-CT with underdistention vs transverse/descending colitis
-mild leukocytosis
-hx similar pain 6 months ago with extensive work up
-prior adrián
-appe
-recent wt loss with use of Zepbound
-GERD with increased symptoms with Zepbound use
-
Subjective
Subjective
Date of Service: March 05, 2024
Still c/o RUQ pain, managed with pain meds. No BMs.
Objective
Data Reviewed
Laboratory Data:
Laboratory Results
03/05/24 08:34
03/05/24 08:34
Laboratory Results
Total Bilirubin 0.5 mg/dl (0.2-1.3) 03/05/24 08:34
AST 24 U/L (14-36) 03/05/24 08:34
ALT 25 U/L (0-35) 03/05/24 08:34
Alkaline Phosphatase 58 U/L (38-126) 03/05/24 08:34
Lipase 100 U/L (23-300) 03/05/24 08:34
Vital Signs and I&O:
Vital Signs
Temp Pulse Resp BP Pulse Ox
98.1 F 64 14 134/83 95
03/05/24 07:40 03/05/24 07:40 03/05/24 07:40 03/05/24 07:40 03/05/24 13:21
I&O
03/04/24 03/05/24 03/06/24
06:59 06:59 06:59
Intake Total 3520 / 3520
Balance 3520 / 3520
Physical Exam
Physical Exam
GI: Soft and Tender
[2024-03-05 15:15] VITALS: BP 132/85
[2024-03-05] MEDS: MIRALAX 17 GRAMS PO (15:20)
[2024-03-05] MEDS: SENOKOT-S 1 TABLET PO (21:41)
[2024-03-05 23:45] VITALS: BP 142/81
[2024-03-06 00:21] VITALS: BP 142/81
[2024-03-06] MEDS: DILAUDID 0.5 MG IV (00:37)
--- NOTE | 2024-03-06 02:58 | DOWNTIME ---
There was a [employer] Client Senior Medical Director Downtime on 03/06/2024 from 0100 to 03/06/2024 at 0252. Downtime documentation of patient's care, including medication administrations, has been reconciled in the electronic record per guidelines. Refer to the
patient's paper chart under the miscellaneous tab to see printed paper medication records and downtime forms.
[2024-03-06 07:30] VITALS: BP 124/76
[2024-03-06] MEDS: BENTYL 20 MG PO (08:20)
[2024-03-06] MEDS: PROTONIX IV 40 MG IV (08:20)
[2024-03-06] MEDS: LEXAPRO 20 MG PO (08:20)
[2024-03-06] MEDS: MIRALAX 17 GRAMS PO (08:20)
[2024-03-06] MEDS: NSS (PRESERVATIVE FREE) 10 ML IV (08:21)
[2024-03-06] MEDS: TYLENOL 650 MG PO (08:47)
--- NOTE | 2024-03-06 10:43 | W.PN.GI.CBS2 ---
Today's Communication / Plan
-
MRI negative for stone
abd pain resolved
agree that could be combination of food poisoning/gastroenteritis, GLP-1 agent, IBS
OK for d/c at this point
Will sign off. Told pt to f/u with GI if ongoing issues as outpt
Assessment / Plan
-
Pt is a 43yo with hx ADHD, anxiety, depression, adrián, appe with upper abdominal pain with bloating. On admission noted with WBC 12,200 with normal LFT's and lipase. Imaging with CT with no intraabdominal abnormality with wall thickening
transverse and descending with underdistention rather than colitis and prior adrián. In reviewing with patient she was noted with hx similar pain when gallbladder was removed several years ago. She states she was well for years then began with 6
month ago with similar pain and work up in [place]. She had multiple testing including, CT, US, EGD, colonoscopy all unrevealing. She admits about 2 months ago she started Zepbound and now presents with recurrent pain after eating [place] [employer] She admits to diarrhea prior to admission that resolved. Pain she describes initially lower pain with diarrhea then RUQ pain with distended, sharp pressure with waves of worsening pain. Improved with pain meds. Worse at night and
with some positional pain. She also admits to some nausea and dry heave with pain. She has hx GERD worse with Zepbound and Pepcid was added. She denies dysphagia, vomiting, constipation or bleeding. Denies travel, abx and only new med was
Dyanavel.
-RUQ abdominal pain
-recent lower abdominal pain with diarrhea
-CT with underdistention vs transverse/descending colitis
-mild leukocytosis
-hx similar pain 6 months ago with extensive work up
-prior adrián
-appe
-recent wt loss with use of Zepbound
-GERD with increased symptoms with Zepbound use
-
Subjective
Subjective
Date of Service: March 06, 2024
abd pain resolved. Tolerated breakfast without problem
Objective
Data Reviewed
Laboratory Data:
Laboratory Results
03/05/24 08:34
03/05/24 08:34
Laboratory Results
Total Bilirubin 0.5 mg/dl (0.2-1.3) 03/05/24 08:34
AST 24 U/L (14-36) 03/05/24 08:34
ALT 25 U/L (0-35) 03/05/24 08:34
Alkaline Phosphatase 58 U/L (38-126) 03/05/24 08:34
Lipase 100 U/L (23-300) 03/05/24 08:34
Vital Signs and I&O:
Vital Signs
Temp Pulse Resp BP Pulse Ox
98.5 F 66 18 124/76 98
03/06/24 07:30 03/06/24 07:30 03/06/24 07:30 03/06/24 07:30 03/06/24 07:30
I&O
03/05/24 03/06/24 03/07/24
06:59 06:59 06:59
Intake Total 3520 / 3520 2280 / 2280
Balance 3520 / 3520 2280 / 2280
Physical Exam
Physical Exam
GI: Soft, Non Distended and Non Tender
--- NOTE | 2024-03-06 11:32 | CM ---
Reviewed the chart notes and spoke with the patient at the bedside. Patient for possible discharge today to home. CM continues to be available to patient/family and is monitoring medical plan for needs at discharge.
Plan: Discharge to home today. Patient's mother will provide transportation.
--- NOTE | 2024-03-06 13:02 | W.PN.HOSP.TC ---
Today's Communication/Plan
-
dc to home
Assessment / Plan
Assessment / Plan
Acute Abdominal pain of unclear etiology
similar episode in [place] (pt moved to this area from [place] 1 wk [employer]) about 6 mos ago. Was seen by GI, underwent CT scan, US, and was seen by GI undergoing EGD and [place], all nl.
This episode pt [place] (03[place]01) and developed diarrhea x2 Monday afternoon (diarrhea has fully resolved), with associated pain that started Monday afternoon and has continued. Seen in ER Monday, went
home, but pain continued and returned
- Mild leucocytosis resolved
WBC 10.5-->12.2-->8.6k
LFT's nl x 2
- CT of abd/pelvis: No acute intra-abdominal abnormality. There is apparent wall thickening of the transverse and descending colon, likely due to underdistention, rather than long segment colitis.
- Clear diet -->chol reducing
US: 1. No evidence of cholelithiasis, acute cholecystitis, or biliary ductal dilation.
2. Suggestive of diffuse fatty infiltration of liver.
- PRN IV Toradol
- GI consulted, input appreciated, reviewed with Dr Patel
MRCP: neg
etio of process remains unclear. Pt still in pain. ?does Zepbound play a roll in the pain (GLP-1 inhibitor), was taking this for past 2 months and has lost ~15 lbs
Hx of Cholecystectomy ~7 yrs [employer]
pain of similar nature, but was epigastric, current episode in [facility] pt and slightly lateral
HX ADHD
- cont all OP Meds
Cigs -has been smoking >20 yrs, but has significantly reduced daily intake. Offered patch, pt declines
discussed importance of stopping, pt fully acknowledges
DVT Px: LMWH
Code: Full code
Obs MS
dc now
see dictated note
Anticipated Discharge: Today
Subjective/Interval History
-
Date of Service: March 06, 2024
abd pain resolved, no nausea
Objective Data
-
Vital Signs:
Vital Signs
Temp Pulse Resp BP Pulse Ox
98.5 F 66 18 124/76 98
03/06/24 07:30 03/06/24 07:30 03/06/24 07:30 03/06/24 07:30 03/06/24 07:30
I&O
03/05/24 03/06/24 03/07/24
06:59 06:59 06:59
Intake Total 3520 / 3520 2280 / 2280
Balance 3520 / 3520 2280 / 2280
Review of Systems
-
History Source: Patient
Constitutional: Denies Fever
EENT: Reports No Symptoms Reported
Respiratory: Reports No Symptoms
Cardiac: Reports No Symptoms
Abdomen/GI: Reports Nausea (resolved) and Diarrhea (last episode 03/02 mid afternoon); Denies Abdominal Pain (resolved) or Vomiting
Musculoskeletal: Reports No Symptoms
Neuro: Reports No Symptoms
Physical Exam
-
General: Well Developed, Well Nourished and No Apparent Distress
HEENT: Normocephalic, Atraumatic and Moist Mucous Membranes
Respiratory: Clear to Auscultation; Negative Wheezes, Rales or Rhonchi
Cardiac: Regular Rhythm and S1/S2
GI: Soft, Normal Bowel Sounds (normal) and Tender (resolved)
Musculoskeletal: No Clubbing, No Cyanosis and No Edema
Neuro: Awake, Alert and Oriented
--- NOTE | 2024-03-06 13:13 | W.DS.TRANS ---
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
-
Discharge Instructions:
Instructions:
Stand-Alone Forms:
Changes to Home Medications: Yes
Discharge Medications:
DC Medications w/original date entered in [facility]
amphetamine 10 mg tablet, immediate and extended release 24 hour (Dyanavel XR) 10 mg PO DAILY Mental Health/Anxiety 03/04/24
escitalopram oxalate 20 mg tablet (Lexapro) 20 mg PO DAILY Mental Health/Anxiety 03/04/24
Home Medication Changes
stop Zepbound until seen by new PCP and cleared to resume
Pending Results: No
[2024-03-06 13:40] VITALS: BP 123/92
== END 2024-03-06 13:51 | disposition home or self-care (01) ==
LOC: 2 NORTH 04:09
PROVIDERS: ADMITTING PHYSICIAN Internal Medicine; ATTENDING PHYSICIAN Internal Medicine; CONSULT PHYSICIAN Internal Medicine Gastroenterology; EMERGENCY PHYSICIAN Student in an Organized Health Care Education/Training Program
DX: A05.9 Bacterial foodborne intoxication, unspecified (principal); R10.9 Unspecified abdominal pain; K58.9 Irritable bowel syndrome, unspecified; F90.9 Attention-deficit hyperactivity disorder, unspecified type; F41.9 Anxiety disorder, unspecified; E66.01 Morbid (severe) obesity due to excess calories; F32.A Depression, unspecified; R07.81 Pleurodynia; R06.00 Dyspnea, unspecified; R19.7 Diarrhea, unspecified; K76.0 Fatty (change of) liver, not elsewhere classified; R11.2 Nausea with vomiting, unspecified; F17.210 Nicotine dependence, cigarettes, uncomplicated; K21.9 Gastro-esophageal reflux disease without esophagitis; D72.829 Elevated white blood cell count, unspecified; R68.2 Dry mouth, unspecified; Z90.49 Acquired absence of other specified parts of digestive tract; Z88.8 Allergy status to other drugs, medicaments and biological substances; Z88.6 Allergy status to analgesic agent; Z91.040 Latex allergy status; Z68.39 Body mass index [BMI] 39.0-39.9, adult; Z80.0 Family history of malignant neoplasm of digestive organs
CPT/HCPCS: 74183; 76700; 80053; 81003; 83690; 85025; 85027; 96374; 99284; 99406; A9575; G0378

== ENCOUNTER 2024-03-09 01:30 | Inpatient (IN) | payer BC, SELFPAY ==
[2024-03-08 21:36] VITALS: BMI 39.2
[2024-03-08 21:43] VITALS: BP 162/114
[2024-03-08 22:00] VITALS: BP 133/121
[2024-03-08 22:07] LABS: % Basophils 1.1 % (0-2); % Eosinophils 3.3 % (0-6); % Immature Granulocytes 0.4 % (0-0.5); % Lymphocytes 21.4 % (20.5-51.1); % Monocytes 6.3 % (1.7-9.3); % Neutrophils 67.5 % (42.2-75.2); Absolute Basophils 0.1 10^3/uL (0-0.2); Absolute Eosinophils 0.3 10^3/uL (0-0.7); Absolute Lymphocytes 2.2 10^3/uL (1.2-3.4); Absolute Monocytes 0.7 10^3/uL (0.1-0.6); Hematocrit 43.7 % (37.0-47.0); Hemoglobin 15.7 g/dL (12.0-16.0); Mean Corp Hgb Conc. 35.9 g/dL (33.0-37.0); Mean Corpuscular Hgb 30.1 pg (27.0-31.0); Mean Corpuscular Volume 83.9 fL (81.0-99.0); Mean Platelet Volume 9.9 fL (7.4-10.4); Nucleated Red Blood Cells % 0 %; Platelet Count 363 10^3/uL (130-400); Red Blood Cell Count 5.21 10^6/uL (4.20-5.40); Red Cell Dist. Width 13.2 % (11.5-14.5); White Blood Cell Count 10.4 10^3/uL (4.8-10.8)
[2024-03-08 22:16] LABS: HCG, Serum Qualitative Screen Negative
[2024-03-08 22:19] LABS: Albumin 4.5 g/dl (3.5-5.0); Alkaline Phosphatase 258 U/L (38-126); Blood Urea Nitrogen 8 mg/dl (7-17); Calcium 9.8 mg/dl (8.4-10.2); Carbon Dioxide 19 mmol/L (22-30); Chloride 106 mmol/L (98-107); Estimated Creatinine Clearance 100 ml/min; Glucose 124 mg/dl (70-99); Lipase 158 U/L (23-300); Potassium 4.1 mmol/L (3.5-5.1); Sodium 138 mmol/L (135-145); Total Bilirubin 3.5 mg/dl (0.2-1.3); Total Protein 7.2 g/dl (6.3-8.2); eGFR > 60.00
[2024-03-08 22:34] VITALS: BP 107/89
[2024-03-08 22:42] LABS: ALT (SGPT) 1889 U/L (0-35); AST (SGOT) 1312 U/L (14-36)
[2024-03-08 23:01] VITALS: BP 139/79
[2024-03-08] MEDS: ZOFRAN 4 MG IV (23:10)
[2024-03-08] MEDS: DILAUDID 1 MG IV (23:10)
[2024-03-08] MEDS: NSS 1000 IV (23:10)
[2024-03-08 23:46] LABS: Lactic Acid 1.1 mmol/L (0.7-2.0)
[2024-03-09] VITALS (7 sets, daily range): BP systolic 123–149; BP diastolic 67–81; BMI 39.4
--- NOTE | 2024-03-09 00:33 | ED.GENMED ---
History of Present Illness
General
Chief Complaint: Abdominal Pain
Source: patient, previous radiology exam (Recent CT abdomen pelvis, abdominal ultrasound as well as MRCP) and previous hospital records (ED visit March 03 as well as March 04 and recent hospitalization March 04 to March 06 for similar abdominal
pain complaint.)
Exam Limitations: none
Time Seen by Provider: 03/08/24 22:56
Nursing documentation reviewed up to this point in time: agreed with
History of Present Illness
History of Present Illness:
This is a 43-year-old obese woman who returns to the ED with complaints of recurrent severe right upper quadrant epigastric pain that began around 2 PM today, persistent for several hours and unrelieved with Lactaid, Gas-X, Tylenol. Pain resolved
around 5 PM but then around 6:30 PM she developed mild gnawing discomfort in her epigastric region, right upper quadrant and thought that she perhaps was hungry thus ate a half of a child's [employer] with progressive worsening of right
upper quadrant pain and has been persistent, now severe accompanied with nausea and dry heaves. She admits to feeling restless, intermittent diaphoresis, right upper quadrant pain radiates to her general upper abdominal discomfort but no chest pain
nor back pain.
She has prior history of cholecystectomy (2016) and prior history of very similar pain 6 months ago, unremarkable evaluation while residing in [place] as well as unremarkable follow-up endoscopy and colonoscopy at that time.
She was feeling well until more recently when she had similar right upper quadrant pain presenting to this ED initially March 03, unremarkable laboratory studies, unremarkable CT of the abdomen pelvis with IV contrast save for mild thickening of
the transverse and descending colon which may indicate mild colitis versus underdistention.
She returned to the ED March 04 with very similar severe pain and was hospitalized until March 06 where she underwent unremarkable abdominal ultrasound and unremarkable MRCP. Unremarkable laboratory studies.
Pain slowly resolved with IV pain medications, IV fluids and bowel rest.
She was noted to have intermittent nonbloody loose stools and thought was perhaps a gastroenteritis versus exacerbation of irritable bowel syndrome.
She admits to mildly loose nonbloody stool this morning but no recurrent diarrhea and has not had a fever.
Since discharge home on the she has been pain-free and comfortable until this afternoon.
She has not resumed Zepbound as instructed.
She denies dysuria nor urgency nor hematuria but has noted her urine is somewhat dark in color today.
Past History
Past History
ED Past Medical History: Psychiatric (ADHD/anxiety/depression) and Other (Irritable bowel syndrome)
ED Past Surgical History: Appendectomy ('the surgeon said that parasites were found in the appendix'), Cholecystectomy (2017 in [place]) and
Social History
Tobacco: Non-smoker
Alcohol: None
Drug: None
Personal: Single
Living: with family
Employment: Employed
Family History
Family History: Other (Noncontributory)
Phy Exam
Physical Exam
Physical Exam:
GENERAL: 43-year-old obese woman appears her stated age, lying on her right side, knees and hips flexed. Appears in moderate distress, moaning in pain, clutching her right upper quadrant.
EYE: pupils equal and reactive. anicteric
NECK: Supple, nontender, no meningismus, no significant adenopathy.
ENT: oral mucosa is moist. No rhinorrhea.
CARDIAC: Regular rate and rhythm. no murmur.
LUNGS: Clear breath sounds bilaterally, no acute respiratory distress, no wheezes/rales/rhonchi
ABDOMEN: Rotund, soft, nondistended, moderate tenderness right upper quadrant as well as mild to moderate tenderness epigastric region with mild local guarding, no rebound nor rigidity,, no cvat. normoactive BS.
NEUROLOGICAL: Alert and oriented x3, no focal neuro deficits.
SKIN: Warm and dry, normal color, skin intact. No rash.
MUSCULOSKELETAL: No C/C/E. peripheral pulses are full and equal b/l. No palpable tenderness.
PSYCH: Mildly anxious related to pain. Cooperative.
Course
Orders/Labs/Results
Orders:
Orders
03/08/24 21:38
ECG [Electrocardiogram (*1)] Urgent
Reason for Study: Abdominal Pain
EKG- Treatment ONCE
03/08/24 21:50
Test Result ONCE
03/08/24 21:52
Complete Blood Count/With Diff Urgent
Comprehensive Metabolic Panel Urgent
HCG, Serum Qualitative Screen Urgent
Comment: Notify provider if positive test present
Hepatitis B Core Ab, IgM Urgent
Comment: ADD ON
Hepatitis B Surface Antibody Urgent
Comment: ADD ON
Hepatitis B Surface Antigen Urgent
Comment: ADD ON
Hepatitis C Antibody Urgent
Comment: ADD ON
Lipase Urgent
03/08/24 23:06
0.9% Sodium Chloride 1000 ml [Nss] 1,000 ml IV BOLUS
HYDROmorphone [Dilaudid] 1 mg IV NOW STA
Ondansetron Injectable [Zofran] 4 mg IV NOW STA
03/08/24 23:15
Add On- LAB Urgent
Tests Added?: Hepatitis lab panel
03/08/24 23:26
Lactic Acid Urgent
03/08/24 23:45
Urinalysis Reflex To Culture Urgent
03/09/24 00:17
HYDROmorphone [Dilaudid] 0.5 mg IV NOW STA
03/09/24 01:18
Admit/Transfer Patient As Directed
Co-Sign Provider:
Level of Care: Inpatient admission
Assign to:: Medical/Surgical
Physician / Group: Pipe
Diagnosis: Acute Hepatitis / Suspected Choledocholithiasis
Reason for Hospitalization: Acute Hepatitis / Suspected Choledocholithiasis
Expected length of stay greater than two midnights?: Yes
ELOS- Estimated Length of Stay in days: 3
I certify the patient meets the requirements for IP care: Yes
03/09/24 01:19
PRN Pain Medication Management As Directed
May give lesser potent ordered pain med per pt: Yes
preference::
Protocol:: Medication orders for pain may be administered in a
manner that supports deferring to patient preference
when the pt is:
- Requesting an ordered lesser potent pain medication.
Least to most potent pain medications are defined
as: acetaminophen < NSAID < tramadol < opioids
(morphine, oxycodone, hydromorphone).
- Requesting a lesser dose of the same medication IF
ORDERED.
- Requesting a less intrusive route of administration
if both routes are prescribed by the provider (PO <
IV).
03/09/24 01:20
Code Status As Directed
Resuscitation Status: Full Code
03/09/24 02:42
0.9% Sodium Chloride 1000 ml [Nss] 1,000 ml IV 100 mls/hr
HYDROmorphone [Dilaudid] 0.5 mg IV Q4HPRN PRN
03/09/24 02:42
Consult Notification Routine
Specialty to Notify: Gastroenterology
GASTROINTESTINAL CONSULT Routine
Consulting Provider: Ashish Davis
Was physician already notified: No
Reason for consult: Acute Hepatitis / Suspected Choledocholithiasis
Activity As Directed
Activity Level: Ambulate
I/O [Intake/ Output] As Directed
Frequency: Per unit guidelines
Pneumatic Compression Sleeves As Directed
Type: Knee high
Vital Signs As Directed
Frequency: Per unit guidelines
Oxygen Therapy [O2 Therapy] [RESP] Routine
Titrate/Wean O2 to maintain O2 sat greater than (%): 94
DX Deep Vein Thrombosis Video Routine
03/09/24 05:00
Trimethobenzamide [Tigan] 200 mg IM Q6HPRN PRN
03/09/24 05:17
Basic Metabolic Panel IN AM
Complete Blood Count/No Diff IN AM
LFT [Htyda-Citf-Pgltzdq] IN AM
03/09/24 Breakfast
NPO
Allow oral meds: Yes
Allow clear liquids: Sips of Clears
NPO with Ice Chips: Yes
03/09/24 08:00
Pantoprazole [Protonix IV] 40 mg IV DAILY
03/09/24 23:45
US Abdomen Limited Urgent
Reason For Exam: recurrent severe RUQ pain, elevated LFT's
Abnormal Lab Results
03/08/24
21:52
Absolute Neuts (auto) 7.0 H 10^3/uL
(1.4-6.5)
Absolute Monos (auto) 0.7 H 10^3/uL
(0.1-0.6)
Carbon Dioxide 19 L mmol/L
(22-30)
Glucose 124 H mg/dl
(70-99)
Total Bilirubin 3.5 H mg/dl
(0.2-1.3)
AST 1312 H* U/L
(14-36)
ALT 1889 H* U/L
(0-35)
Alkaline Phosphatase 258 H U/L
(38-126)
03/08/24 21:52
03/08/24 21:52
Vital Signs
Initial and Last Documented VS:
Initial Vital Signs
Temp Pulse Resp BP Pulse Ox
98.3 F 95 20 162/114 99
03/08/24 21:43 03/08/24 21:43 03/08/24 21:43 03/08/24 21:43 03/08/24 21:43
Last Documented Vital Signs
Temp Pulse Resp BP Pulse Ox
98.0 F 67 16 123/70 97
03/09/24 07:05 03/09/24 07:05 03/09/24 07:05 03/09/24 07:05 03/09/24 07:05
MDM/Problems Addressed
Differential Diagnosis Includes:
Patient returns with recurrent severe right upper quadrant pain, colicky in nature, concern for recurrent biliary colic, biliary obstruction, irritable bowel syndrome, colitis, recurrent gastroenteritis, ischemic bowel gastric volvulus. Less likely
gastroparesis.
Will medicate for pain and nausea, initiate IV fluids.
Repeat labs.
Will consider repeat imaging depending on results.
*Radiology
Radiology exam reviewed: radiology read reviewed
*Pulse Oximetry
Patient hypoxic: no
*Critical Care Note
Total Time (30-74mins, 75-104mins- exclusive of procedures): Not Applicable
Update Note
Update Note:
Labs show significantly elevated LFTs as well as elevated T. bili and alkaline phosphatase most concerning for acute biliary obstruction. Much less likely acute viral versus medication induced hepatitis especially as symptoms have been intermittent
in nature.
Will add viral hepatitis panel for completeness sake and will check limited abdominal ultrasound to assess for common bile duct obstruction.
Patient is much more comfortable but continues with moderate right upper quadrant pain.
Will continue IV fluids, IV pain medication and will plan to admit to hospitalist service.
ED Attending Note
-
Portions of this chart may have been created with voice recognition software.� Occasional wrong word or��sound alike� substitutions may have occurred due to the inherent limitations of voice recognition software.
Discharge Plan
Departure
Patient Disposition: Admit
Date of Disposition: 03/09/24
Time of Disposition: 00:50
Admit to: Med/Surg
Admit to doctor: Pipe
Presentation/result/management discussed w/ accepting MD/DO: Hospitalist
Condition: Fair
Discharge Problem:
acute recurrent RUQ pain, acutely elevated LFT's
Interventions
Interventions:
*Risk Screen - Suicide Last Done: 03/09/24 03:13
*General Assessment Last Done: 03/08/24 21:43
*Neglect/Abuse Screening Last Done: 03/08/24 21:43
ED- Fall Risk Assessment Last Done: 03/08/24 22:24
*ED COVID-19 Vaccine History Last Done: 03/08/24 22:24
*Nursing Disposition Last Done: 03/09/24 02:37
NH-Wlhuiv-Zefclaogwt Assessment Last Done: 03/08/24 22:24
Discharge Date and Time
Discharge Date/Time: 03/09/24 02:38
[2024-03-09] MEDS: DILAUDID 0.5 MG IV ×3 (01:02→23:16)
--- NOTE | 2024-03-09 01:22 | HPS.HSE ---
Family Physician
-
Family Physician: * NONE
Chief Complaint
-
Abd pain
History of Present Illness
Patient is a 43y F with PMH significant for obesity who presents to ED complaining of abdominal pain. Patient was previously hospitalized from 03/04 - 03/06 for similar symptoms. She states that she has continued with some mild RUQ discomfort
sincethe time of her discharge. Evaluation during that stay including labs, MRCP, US and GI evaluation was entirely unremarkable.
Patient states that she developed increased abdominal discomfort earlier today with pain in the RUQ and wrapping in a band-like fashion around her upper abdomen / back.
She had nausea and dry heaves. She denies any fevers / chills.
Patient states that pain was similar to her prior bout - though much more severe.
Patient also reports another similar episode about 6 months ago. She was hospitalized in [place], [place] at that time and work-up there was similarly unremarkable.
Patient was on Zepbound for weight loss. She states that she has not resumed this since her prior hospitalization.
Medical History
Past Medical History
Past Medical History: Reports Other
Additional Past Medical History:
Anxiety / Depression
Obesity
Past Surgical History: Reports Other
Additional Past Surgical History:
Cholecystectomy (8 years ago)
Appendectomy
Foot Surgery
Social History
Tobacco: Smoker (Current every day smoker. Approx 20 pack years total use.)
Alcohol: Occasional (Very rare.)
Drug: None
Family History
Family History: Not pertinent
Allergies / Home Medications
Allergies reflects when Allergies were last updated in [facility].
Home Medications with original date entered in [facility]
Allergy/Medication List:
Allergies
Allergy/AdvReac Type Severity Reaction Status Date / Time
adhesive tape Allergy Unknown Verified 03/08/24 21:43
bupropion [From Wellbutrin] Allergy Unknown Verified 03/08/24 21:43
celecoxib [From Celebrex] Allergy Anaphylaxis Verified 03/08/24 21:43
latex Allergy Unknown Verified 03/08/24 21:43
Home Medications
amphetamine 10 mg tablet, immediate and extended release 24 hour (Dyanavel XR) 10 mg PO DAILY Mental Health/Anxiety 03/04/24
escitalopram oxalate 20 mg tablet (Lexapro) 20 mg PO DAILY Mental Health/Anxiety 03/04/24
Review of Systems
-
History Source: Patient
A 12 point ROS was completed and negative except as noted: Yes
Constitutional: Denies Fever or Chills
Respiratory: Denies Cough or Trouble Breathing
Cardiac: Denies Chest Pain or Palpitations
Abdomen/GI: Reports Abdominal Pain and Nausea; Denies Vomiting, Diarrhea, Constipated, Bloody Stools or Black Stools
: Reports Dark Urine; Denies Dysuria, Frequency or Flank Pain
Musculoskeletal: Denies Joint Pain or Edema
Neurological: Denies Dizzy or Headache
Physical Exam
Vital Signs
Vital Signs
Temp Pulse Resp BP Pulse Ox
98.3 F 86 13 139/79 95
03/08/24 21:43 03/08/24 23:30 03/08/24 23:01 03/08/24 23:01 03/08/24 23:30
Physical Exam
General: Other (43y F in mild distress due to pain.)
HEENT: Moist mucous membranes and Other (Thick neck.)
Respiratory: Clear; No Wheezes, Rales or Rhonchi
Cardiac: S1/S2 and Regular Rhythm; No Murmur
GI: Soft, Non Distended, Normal Bowel Sounds and Other (Pos RUQ / epigaastric tenderness with voluntary guarding. No rebound.)
Musculoskeletal: No Clubbing, No Cyanosis and No Edema
Neuro: AO x 3
Laboratory Results
-
03/08/24 21:52
03/08/24 21:52
Laboratory Results
Lactic Acid 1.1 mmol/L (0.7-2.0) 03/08/24 23:26
Total Bilirubin 3.5 mg/dl (0.2-1.3) H 03/08/24 21:52
AST 1312 U/L (14-36) H* 03/08/24 21:52
ALT 1889 U/L (0-35) H* 03/08/24 21:52
Alkaline Phosphatase 258 U/L (38-126) H 03/08/24 21:52
Lipase 158 U/L (23-300) 03/08/24 21:52
Impression/Plan
-
A/P: Patient is a 43y F with PMH significant for obesity and anxiety / depression who presents to ED complaining of abdominal pain.
Acute Hepatitis / Suspected Choledocholithiasis
- Admit for further evaluation and treatment.
- Patient with persistent, mild RUQ pain since prior hospitalization.
- Also noted orange / dark urine since that time.
- Today with more severe / abrupt worsening of pain.
- Now with markedly abnormal LFTs including transaminases in the 1000s and elevated bili and alk phos.
- MRCP done during prior admission was unremarkable.
- Pain control, antiemetics, supportive care.
- GI re-evaluation for additional recommendations - ? ERCP.
- Follow for any new / worsening symptoms.
Anxiety / Depression
- Stable. Hold PO meds acutely.
Obesity due to excess calories
- Affects all aspects of care.
- Encourage healthy diet and increased activity with goal of weight loss.
- Caution with Zepbound and similar meds given GI issues.
DVT Prophylaxis: SCDs
Code Status: Full
[2024-03-09] MEDS: NSS 1000 IV ×3 (03:32→21:41)
[2024-03-09] MEDS: DILAUDID 0.25 MG IV ×2 (04:03→11:49)
--- NOTE | 2024-03-09 04:45 | PTCARENOTE ---
Received pt from ED via stretcher; [facility] orders. VSS. pt c/o 03/26 sharp pain to RUQ. Breakthrough Dilaudid ordered and administered through #20 RAC int. IVF infusing per order. PMH and medications reviewed by this RN and patient. Plan of care
discussed. Call mackey within reach.
[2024-03-09 05:43] LABS: Hematocrit 42.1 % (37.0-47.0); Hemoglobin 14.9 g/dL (12.0-16.0); Mean Corp Hgb Conc. 35.4 g/dL (33.0-37.0); Mean Corpuscular Hgb 30.9 pg (27.0-31.0); Mean Corpuscular Volume 87.3 fL (81.0-99.0); Mean Platelet Volume 9.9 fL (7.4-10.4); Platelet Count 288 10^3/uL (130-400); Red Blood Cell Count 4.82 10^6/uL (4.20-5.40); Red Cell Dist. Width 13.1 % (11.5-14.5); White Blood Cell Count 8.6 10^3/uL (4.8-10.8)
[2024-03-09 06:00] LABS: Albumin 3.6 g/dl (3.5-5.0); Alkaline Phosphatase 201 U/L (38-126); Blood Urea Nitrogen 6 mg/dl (7-17); Calcium 8.6 mg/dl (8.4-10.2); Carbon Dioxide 20 mmol/L (22-30); Chloride 108 mmol/L (98-107); Direct Bilirubin 3.2 mg/dl (0.0-0.4); Estimated Creatinine Clearance > 125 ml/min; Glucose 122 mg/dl (70-99); Potassium 4.4 mmol/L (3.5-5.1); Sodium 136 mmol/L (135-145); Total Bilirubin 4.1 mg/dl (0.2-1.3); Total Protein 6.1 g/dl (6.3-8.2); eGFR > 60.00
[2024-03-09 06:13] LABS: ALT (SGPT) 1528 U/L (0-35); AST (SGOT) 745 U/L (14-36)
--- NOTE | 2024-03-09 07:34 | W.PN.HOSP.TC ---
Today's Communication/Plan
-
diet as per GI
IVF support
pain control
antiemetic prn
monitor LFTs
Assessment / Plan
Assessment / Plan
Physical
General: Well Developed, Well Nourished and No Apparent Distress
HEENT: Anicteric
Respiratory: Clear
Cardiac: Regular Rhythm
GI: Soft, Non Distended, Normal Bowel Sounds and Other (+mild RUQ tenderness)
Skin: Warm and Dry
Neuro: AO x 3
Psych: Calm
A/P: Patient is a 43y F with PMH significant for obesity and anxiety / depression who presents to ED complaining of abdominal pain.
Acute Hepatitis / Suspected Choledocholithiasis
-pain control, antiemetic prn
-monitor LFTs trending down
- MRCP done during prior admission was unremarkable.
- Pain control, antiemetics, supportive care.
- GI eval appreciated pending repeat MRCP
- Follow for any new / worsening symptoms.
Headache
-prn Toradol (noted suspect allergy to celecoxib however patient endorses ibuprofen use without issues)
-protonix gi ppx while on toradol prn
Anxiety / Depression
- Stable. Hold PO meds acutely.
Obesity due to excess calories
- Affects all aspects of care.
- Encourage healthy diet and increased activity with goal of weight loss.
- Caution with Zepbound and similar meds given GI issues.
DVT Prophylaxis: SCDs
Code Status: Full
I spent a total of 50 minutes with the patient or on the floor. More than 50% of this time involved counseling and coordination of care.
Anticipated Discharge: 24 - 48 hours
Subjective/Interval History
-
Date of Service: March 09, 2024
No acute distress appears comfortable at this time. No appetite. Concern exacerbating abd pain.
Objective Data
-
Labs:
Laboratory Results
03/08/24 03/09/24
21:52 05:17
WBC 10.4 8.6
Hgb 15.7 14.9
Hct 43.7 42.1
Plt Count 363 288 D
Sodium 138 136
Potassium 4.1 4.4
Chloride 106 108 H
Carbon Dioxide 19 L 20 L
BUN 8 6 L
Creatinine 0.9 0.7
Glucose 124 H 122 H
Calcium 9.8 8.6
Total Bilirubin 3.5 H 4.1 H
AST 1312 H* 745 H*
ALT 1889 H* 1528 H*
Alkaline Phosphatase 258 H 201 H
Vital Signs:
Vital Signs
Temp Pulse Resp BP Pulse Ox
98.0 F 67 16 123/70 97
03/09/24 07:05 03/09/24 07:05 03/09/24 07:05 03/09/24 07:05 03/09/24 07:05
I&O
03/08/24 03/09/24 03/10/24
06:59 06:59 06:59
Intake Total 400 / 400
Balance 400 / 400
[2024-03-09] MEDS: NSS (PRESERVATIVE FREE) 10 ML IV (08:09)
[2024-03-09] MEDS: PROTONIX IV 40 MG IV (08:09)
[2024-03-09] MEDS: FLUSH (NSS) 2 FLUSH IV ×4 (08:11→16:36)
--- NOTE | 2024-03-09 08:25 | CON.GI ---
Addendum entered and electronically signed by Ashish Davis MD 03/09/24 14:40:
I saw and examined the patient.
The ORTHOTIST/PROSTHETIST or PA's note was reviewed and I agree with the note.
Comment:
Pt is a 43 y/o woman with a hx of a cholecystectomy approx 7 yrs ago who has been having intermittent biliary colic with 2 previous ER visits. She has had normal imaging and labs in the past. This episode was worse. ON admission her lfts were
elevated. no fever or vomiting.
abd: ruq tenderness
ast/alt 745/1500, elevated ALP
impression:
ruq pain
abnl lfts
plan:
check MRCP, last week was negative
check hep panel
check deepa/asma
follow lfts
NPO for now
Original Note:
Consultation
-
Date/Time Consultation Requested: 03/09/24241
Date/Time Consultation Performed: 03/09/24829
Requesting Provider: Dr Betancur
Performing Provider: Dr Davis / Marcella Arroyo PA-C
Reason for Consultation: abdominal pain
Medical History
Chief Complaint / HPI
Chief Complaint: abdominal pain
History of Present Illness:
This is a 43 year old female with a past medical history of ADHD, anxiety, depression, s/p cholecystectomy (8 years ago) and obesity who has had recurrent episodes of right upper quadrant pain in the past 6 months, currently admitted again with RUQ
pain and elevated LFTs. She states the RUQ pain began 6 months ago while living in [place], and had extensive workup and testing there including CT, US, EGD and colonoscopy which were all unrevealing. She was admitted here at on 03/04-03/06
and had workup here that included labs which were essentially unremarkable and with normal LFTs; ultrasound and CT imaging fo the abdomen as well as MRI. Fatty liver was noted as well as apparent wall thickening of the transverse and distal colon
which twas though to be likely due to underdistention than segmental colitis. She states the pain had improved and was discharged. Of note, she started Zepbound for weight loss 2 months ago, which she tolerated well but has held since her most
recent admission. This has not been re-started. Last night, she states the right upper quadrant pain returned and this is described as 'the worst pain of my life.' No associated fever, chills, vomiting or diarrhea. She did feel nauseous and was dry
heaving. She also admits to cold sweats and noted darker, tea-colored urine. No rashes or jaundice. Initial ER labs reviewed: WBC count 10.4, hemoglobin 15.7, platelets 363. LFTs as follows: Bilirubin 3.5, AST 1312, ALT 1889, alk phos 258. Lipase
158. Hepatitis serologies have been ordered, pending. Today's LFTs still elevated, with slight improvement in transaminases compared to yesterday: Total bilirubin 4.1, direct bilirubin 3.2, AST 745, ALT 1528, alk phos 201. She has no personal or
family history of liver disease. She denies any alcohol use. Patient smokes cigarettes but is trying to quit. No drug use. Rarely takes Tylenol or NSAIDs. She did start a new medication, Dyanavel, about 2 weeks ago.
Past Medical History
Past Medical History: Psychiatric (ADHD, depression)
Past Surgical History: Appendectomy and Cholecystectomy
Social History
Tobacco: Smoker (5-10 cig per day )
Alcohol: None
Drug: None
Personal:
Living: With Family
Employment: Employed
Family History
Family History: Other (grandmother with colon CA)
Allergies / Home Medications
Allergy/AdvReac Type Severity Reaction Status Date / Time
adhesive tape Allergy Unknown Verified 03/08/24 21:43
bupropion [From Wellbutrin] Allergy Unknown Verified 03/08/24 21:43
celecoxib [From Celebrex] Allergy Anaphylaxis Verified 03/08/24 21:43
latex Allergy Unknown Verified 03/08/24 21:43
�Medication �Instructions �Recorded
amphetamine 10 mg tablet, 10 mg PO DAILY Mental 03/04/24
immediate and extended release 24 Health/Anxiety
hour (Dyanavel XR)
escitalopram oxalate 20 mg tablet 20 mg PO DAILY Mental 03/04/24
(Lexapro) Health/Anxiety
Review of Systems
-
History Source: Patient
All other systems: A 12 pt ROS was Negative except as stated above in HPI
Vital Signs
Temp Pulse Resp BP Pulse Ox
98.0 F 67 16 123/70 97
03/09/24 07:05 03/09/24 07:05 03/09/24 07:05 03/09/24 07:05 03/09/24 07:05
Physical Exam
Exam
General: Well Developed, Well Nourished and No Apparent Distress
HEENT: Anicteric
Respiratory: Clear
Cardiac: Regular Rhythm
GI: Soft, Non Distended, Normal Bowel Sounds and Other (+mild RUQ tenderness)
Skin: Warm and Dry
Neuro: AO x 3
Psych: Calm
Results
WBC 8.6 10^3/uL (4.8-10.8) 03/09/24 05:17
Hgb 14.9 g/dL (12.0-16.0) 03/09/24 05:17
Hct 42.1 % (37.0-47.0) 03/09/24 05:17
MCV 87.3 fL (81.0-99.0) 03/09/24 05:17
Plt Count 288 10^3/uL (130-400) D 03/09/24 05:17
Absolute Neuts (auto) 7.0 10^3/uL (1.4-6.5) H 03/08/24 21:52
Sodium 136 mmol/L (135-145) 03/09/24 05:17
Potassium 4.4 mmol/L (3.5-5.1) 03/09/24 05:17
Chloride 108 mmol/L (98-107) H 03/09/24 05:17
Carbon Dioxide 20 mmol/L (22-30) L 03/09/24 05:17
BUN 6 mg/dl (7-17) L 03/09/24 05:17
Creatinine 0.7 mg/dL (0.6-1.0) 03/09/24 05:17
Calcium 8.6 mg/dl (8.4-10.2) 03/09/24 05:17
Total Bilirubin 4.1 mg/dl (0.2-1.3) H 03/09/24 05:17
AST 745 U/L (14-36) H* 03/09/24 05:17
ALT 1528 U/L (0-35) H* 03/09/24 05:17
Alkaline Phosphatase 201 U/L (38-126) H 03/09/24 05:17
Lipase 158 U/L (23-300) 03/08/24 21:52
Diagnostic Image Results:
US Abdomen: 03/09/24
IMPRESSION: Hepatic fatty infiltration. Stable
Small simple hepatic cyst. Stable
Prior cholecystectomy. Stable
MRI Abdomen: 03/05/24
Moderate diffuse hepatic steatosis. Otherwise essentially unremarkable MRI of the abdomen.
US Abdomen: 03/04/24
1. No evidence of cholelithiasis, acute cholecystitis, or biliary ductal dilation.
2. Suggestive of diffuse fatty infiltration of liver.
CT Abdomen/Pelvis: 03/03/24
No acute intra-abdominal abnormality. There is apparent wall thickening of the transverse and descending colon, likely due to underdistention, rather than long segment colitis.
Prior cholecystectomy.
Prior GI Procedures:
EGD and colonoscopy: reportedly normal, 6 mos ago ([place])
Assessment / Plan
-
43 year old female with a past medical history of ADHD, anxiety, depression, s/p cholecystectomy (8 years ago) and obesity who has had recurrent episodes of right upper quadrant pain in the past 6 months, currently admitted again with RUQ pain and
elevated LFTs. She states the RUQ pain began 6 months ago while living in [place], and had extensive workup and testing there including CT, US, EGD and colonoscopy which were all unrevealing. She was admitted here at on 03/04-03/06 and had
workup here that included labs which were essentially unremarkable and with normal LFTs; ultrasound and CT imaging fo the abdomen as well as MRI. Fatty liver was noted as well as apparent wall thickening of the transverse and distal colon which twas
though to be likely due to underdistention than segmental colitis. She states the pain had improved and was discharged. Of note, she started Zepbound for weight loss 2 months ago, which she tolerated well but has held since her most recent
admission. This has not been re-started. Last night, she states the right upper quadrant pain returned and this is described as 'the worst pain of my life.' No associated fever, chills, vomiting or diarrhea. She did feel nauseous and was dry
heaving. She also admits to cold sweats and noted darker, tea-colored urine. No rashes or jaundice. Initial ER labs reviewed: WBC count 10.4, hemoglobin 15.7, platelets 363. LFTs as follows: Bilirubin 3.5, AST 1312, ALT 1889, alk phos 258. Lipase
158. Hepatitis serologies have been ordered, pending. Today's LFTs still elevated, with slight improvement in transaminases compared to yesterday: Total bilirubin 4.1, direct bilirubin 3.2, AST 745, ALT 1528, alk phos 201. She has no personal or
family history of liver disease. She denies any alcohol use. Patient smokes cigarettes but is trying to quit. No drug use. Rarely takes Tylenol or NSAIDs. She did start a new medication, Dyanavel, about 2 weeks ago.
IMPRESSION / PLAN:
RUQ abdominal pain, with elevated LFTs - etiology: acute hepatitis vs choledocholithiasis vs DILI (seems less likely, although did start Dyanavel 2 weeks ago) vs underlying liver disease vs other
- Symptoms suspicious for possible choledocholithiasis
- Repeat US shows CBD 7mm with no intraductal stone noted; will order repeat MRCP
- await Hepatitis serologies
- will order further liver labs: DEEPA, ASMA, AMA, Hepatitis A IgM
- analgesics and antiemetics per hospitalist
-
-
Thank you for consultation and allowing me to participate in the patient's care. Please call the application architect manager GI physician during the after hours with any questions or concerns.
--- NOTE | 2024-03-09 11:03 | CM ---
Reviewed the chart notes and spoke with the patient at the bedside. Patient was recently hospitalized (03/04-03/06 for abdominal pain). The patient resides in a three story home with basement with her daughter and mother. The patient reports only
DME is a CPAP machine. The patient reports no VN or SNF in the past. The patient confirmed her pharmacy of choice is the [facility] [address] [facility]. continues to be available to patient/family and is monitoring medical plan for needs at
discharge.
Plan: Discharge to home when medically stable. No anticipated needs identified at this time.
[2024-03-09 12:56] LABS: Urine Albumin Negative (Neg - Trace); Urine Bilirubin 1+ (Negative); Urine Character Clear (Clear); Urine Color Yellow; Urine Glucose Negative (Negative); Urine Ketone Negative (Negative); Urine Leukocyte Negative (Negative); Urine Nitrite Negative (Negative); Urine Occult Blood Trace (Negative); Urine Urobilinogen Negative (Neg - 1+)
[2024-03-09 13:16] LABS: Urine Bacteria Few (Negative); Urine Red Blood Cell 0-2 /HPF (0-2); Urine Squamous Cell 16-20 /LPF (Few)
[2024-03-09] MEDS: TORADOL 15 MG IV (16:35)
[2024-03-09] MEDS: PHENERGAN 12.5 MG PO (22:45)
[2024-03-09] MEDS: BENADRYL 6.25 MG IV (23:45)
[2024-03-10 07:02] VITALS: BP 134/75
[2024-03-10 07:14] LABS: Hematocrit 42.8 % (37.0-47.0); Hemoglobin 14.8 g/dL (12.0-16.0); Mean Corp Hgb Conc. 34.6 g/dL (33.0-37.0); Mean Corpuscular Hgb 30.6 pg (27.0-31.0); Mean Corpuscular Volume 88.6 fL (81.0-99.0); Mean Platelet Volume 10.6 fL (7.4-10.4); Platelet Count 291 10^3/uL (130-400); Red Blood Cell Count 4.83 10^6/uL (4.20-5.40); Red Cell Dist. Width 13.7 % (11.5-14.5); White Blood Cell Count 6.5 10^3/uL (4.8-10.8)
--- NOTE | 2024-03-10 07:33 | W.PN.HOSP.TC ---
Today's Communication/Plan
-
clear liquid diet
pain control
compazine prn nausea
npo after midnight for EUS and likely ERCP as per GI
Assessment / Plan
Assessment / Plan
Physical
General: Well Developed, Well Nourished and No Apparent Distress
HEENT: Anicteric
Respiratory: Clear
Cardiac: Regular Rhythm
GI: Soft, Non Distended, Normal Bowel Sounds and Other (+mild RUQ tenderness)
Skin: Warm and Dry
Neuro: AO x 3
Psych: Calm
A/P: Patient is a 43y F with PMH significant for obesity and anxiety / depression who presents to ED complaining of abdominal pain.
Acute Hepatitis / Suspected Choledocholithiasis
-pain control, antiemetic prn
-monitor LFTs trending down
- MRCP done during prior admission was unremarkable. Repeat however notes increase in CBD diameter suspicious for obstruction distal CBD per report
- Pain control, antiemetics, supportive care.
- GI eval appreciated clear liquid diet for today npo after midnight for EUS likely ERCP
- Compazine prn nausea avoiding zofran d/t QT interaction with Lexapro recently resolved QT prolongation
Headache
-prn Toradol (noted suspect allergy to celecoxib however patient endorses ibuprofen use without issues)
-protonix gi ppx while on toradol prn
QT prolongation resolved
Anxiety / Depression
- Resume home Lexapro
Obesity due to excess calories
- Affects all aspects of care.
- Encourage healthy diet and increased activity with goal of weight loss.
- Caution with Zepbound and similar meds given GI issues.
DVT Prophylaxis: SCDs
Code Status: Full
discussed with patient and patient's mother Cheli
I spent a total of 58 minutes with the patient or on the floor. More than 50% of this time involved counseling and coordination of care.
Anticipated Discharge: 24 - 48 hours
Subjective/Interval History
-
Date of Service: March 10, 2024
Reports pain improved. Hungry. noted nausea overnight not improved with oral phenergan.
Objective Data
-
Labs:
Laboratory Results
03/10/24
05:52
WBC 6.5
Hgb 14.8
Hct 42.8
Plt Count 291
Sodium Pending
Potassium Pending
Chloride Pending
Carbon Dioxide Pending
BUN Pending
Creatinine Pending
Glucose Pending
Calcium Pending
Total Bilirubin Pending
AST Pending
ALT Pending
Alkaline Phosphatase Pending
Vital Signs:
Vital Signs
Temp Pulse Resp BP Pulse Ox
98.6 F 67 16 134/75 96
03/10/24 07:02 03/10/24 07:02 03/10/24 07:02 03/10/24 07:02 03/10/24 07:02
I&O
03/09/24 03/10/24 03/11/24
06:59 06:59 06:59
Intake Total 400 / 400 1650 / 1650
Output Total 750 / 750
Balance 400 / 400 900 / 900
[2024-03-10 07:38] LABS: AST (SGOT) 266 U/L (14-36); Albumin 3.4 g/dl (3.5-5.0); Alkaline Phosphatase 227 U/L (38-126); Blood Urea Nitrogen 5 mg/dl (7-17); Calcium 8.6 mg/dl (8.4-10.2); Carbon Dioxide 21 mmol/L (22-30); Chloride 108 mmol/L (98-107); Estimated Creatinine Clearance > 125 ml/min; Glucose 83 mg/dl (70-99); Magnesium 2.1 mg/dl (1.6-2.3); Potassium 4.6 mmol/L (3.5-5.1); Sodium 140 mmol/L (135-145); Total Bilirubin 3.7 mg/dl (0.2-1.3); Total Protein 5.9 g/dl (6.3-8.2); eGFR > 60.00
[2024-03-10 07:47] LABS: ALT (SGPT) 1000 U/L (0-35)
[2024-03-10] MEDS: NSS 1000 IV ×2 (08:06→17:39)
[2024-03-10] MEDS: PROTONIX IV 40 MG IV (08:07)
[2024-03-10] MEDS: NSS (PRESERVATIVE FREE) 10 ML IV (08:07)
[2024-03-10] MEDS: FLUSH (NSS) 2 FLUSH IV ×2 (08:08→16:18)
--- NOTE | 2024-03-10 10:12 | W.PN.GI.CBS2 ---
Today's Communication / Plan
-
await mrcp
Assessment / Plan
-
43 year old female with a past medical history of ADHD, anxiety, depression, s/p cholecystectomy (8 years ago) and obesity who has had recurrent episodes of right upper quadrant pain in the past 6 months, currently admitted again with RUQ pain and
elevated LFTs. She states the RUQ pain began 6 months ago while living in [place], and had extensive workup and testing there including CT, US, EGD and colonoscopy which were all unrevealing. She was admitted here at on 03/04-03/06 and had
workup here that included labs which were essentially unremarkable and with normal LFTs; ultrasound and CT imaging fo the abdomen as well as MRI. Fatty liver was noted as well as apparent wall thickening of the transverse and distal colon which twas
though to be likely due to underdistention than segmental colitis. She states the pain had improved and was discharged. Of note, she started Zepbound for weight loss 2 months ago, which she tolerated well but has held since her most recent
admission. This has not been re-started. Last night, she states the right upper quadrant pain returned and this is described as 'the worst pain of my life.' No associated fever, chills, vomiting or diarrhea. She did feel nauseous and was dry
heaving. She also admits to cold sweats and noted darker, tea-colored urine. No rashes or jaundice. Initial ER labs reviewed: WBC count 10.4, hemoglobin 15.7, platelets 363. LFTs as follows: Bilirubin 3.5, AST 1312, ALT 1889, alk phos 258. Lipase
158. Hepatitis serologies have been ordered, pending. Today's LFTs still elevated, with slight improvement in transaminases compared to yesterday: Total bilirubin 4.1, direct bilirubin 3.2, AST 745, ALT 1528, alk phos 201. She has no personal or
family history of liver disease. She denies any alcohol use. Patient smokes cigarettes but is trying to quit. No drug use. Rarely takes Tylenol or NSAIDs. She did start a new medication, Dyanavel, about 2 weeks ago.
IMPRESSION / PLAN:
RUQ abdominal pain, with elevated LFTs - etiology: acute hepatitis vs choledocholithiasis vs DILI (seems less likely, although did start Dyanavel 2 weeks ago) vs underlying liver disease vs other
- Await MRCP not done yesterday
- follow lfts which have begun to trend down but still with markedly elevated transaminases
- await Hepatitis serologies
- will order further liver labs: ELISABETH, ASMA, AMA, Hepatitis A IgM
- analgesics and antiemetics per hospitalist
Subjective
Subjective
Date of Service: March 10, 2024
Pt with more pain today, pain improved last night
Objective
Data Reviewed
Laboratory Data:
Laboratory Results
03/10/24 05:52
03/10/24 05:52
Laboratory Results
Phosphorus 3.0 mg/dl (2.5-4.5) 03/10/24 05:52
Magnesium 2.1 mg/dl (1.6-2.3) 03/10/24 05:52
Total Bilirubin 3.7 mg/dl (0.2-1.3) H 03/10/24 05:52
AST 266 U/L (14-36) H 03/10/24 05:52
ALT 1000 U/L (0-35) H* 03/10/24 05:52
Alkaline Phosphatase 227 U/L (38-126) H 03/10/24 05:52
Lipase 158 U/L (23-300) 03/08/24 21:52
Vital Signs and I&O:
Vital Signs
Temp Pulse Resp BP Pulse Ox
98.6 F 67 16 134/75 96
03/10/24 07:02 03/10/24 07:02 03/10/24 07:02 03/10/24 07:02 03/10/24 08:38
I&O
03/09/24 03/10/24 03/11/24
06:59 06:59 06:59
Intake Total 400 / 400 1650 / 1650
Output Total 750 / 750
Balance 400 / 400 900 / 900
Physical Exam
Physical Exam
Cardiology: S1 and S2
GI: Soft and Tender (ruq tenderness)
Neuro: Non Focal
--- NOTE | 2024-03-10 14:30 | W.PN.UPDATE ---
Update Note
Progress Note Update
MRCP done with dilated biliary ducts with possible distal obstruction (no clear stone seen). this is new from mrcp recently done.
ok for clears but wouldn't advance further
EUS with likely ERCP tomorrow
d/w Dr. Gooden who did d/w pt and mother
[2024-03-10 15:10] VITALS: BP 149/86
[2024-03-10] MEDS: DILAUDID 0.5 MG IV ×2 (16:16→21:29)
[2024-03-10] MEDS: COMPAZINE 5 MG IV (16:17)
[2024-03-10 23:00] VITALS: BP 118/61
[2024-03-11] MEDS: COMPAZINE 5 MG IV (03:48)
[2024-03-11] MEDS: DILAUDID 0.25 MG IV (03:48)
[2024-03-11] MEDS: NSS 1000 IV ×2 (03:48→13:33)
--- NOTE | 2024-03-11 07:35 | W.PN.HOSP.TC ---
Today's Communication/Plan
-
Diet as per GI
NPO after midnight for possible procedure
monitor LFTs
pain control
antiemetics
Assessment / Plan
Assessment / Plan
Physical
General: hungry, eager to eat, upset with delays in tests and procedures
HEENT: Anicteric
Respiratory: Clear
Cardiac: Regular Rhythm
GI: Soft, Non Distended, Normal Bowel Sounds, nontender
Skin: Warm and Dry
Neuro: AO x 3
Psych: Calm
A/P: Patient is a 43y F with PMH significant for obesity and anxiety / depression who presents to ED complaining of abdominal pain.
Acute Hepatitis / Suspected Choledocholithiasis
-pain control, antiemetic prn
-monitor LFTs trending down
- MRCP done during prior admission was unremarkable. Repeat however notes increase in CBD diameter suspicious for obstruction distal CBD per report
- Pain control, antiemetics, supportive care.
- Compazine prn nausea avoiding zofran d/t QT interaction with Lexapro recently resolved QT prolongation
GI eval appreciated
-low fat diet today and if pain will hold and put on for EUS/ERCP
-if no pain and lfts resolve she can follow as an outpatient
-if there is any question she will get an eus tomorrow to determine next steps
Headache
-prn Toradol (noted suspect allergy to celecoxib however patient endorses ibuprofen use without issues)
-protonix gi ppx while on toradol prn
QT prolongation resolved
Anxiety / Depression
- cont home Lexapro
Obesity due to excess calories
- Affects all aspects of care.
- Encourage healthy diet and increased activity with goal of weight loss.
- Caution with Zepbound and similar meds given GI issues.
DVT Prophylaxis: SCDs
Code Status: Full
discussed with patient and patient's mother Cheli
I spent a total of 58 minutes with the patient or on the floor. More than 50% of this time involved counseling and coordination of care.
Anticipated Discharge: 24 - 48 hours
Subjective/Interval History
-
Date of Service: March 11, 2024
reports improvement in pain and nausea. Very hungry
Objective Data
-
Labs:
Laboratory Results
03/11/24
06:00
WBC Pending
Hgb Pending
Hct Pending
Plt Count Pending
Sodium Pending
Potassium Pending
Chloride Pending
Carbon Dioxide Pending
BUN Pending
Creatinine Pending
Glucose Pending
Calcium Pending
Total Bilirubin Pending
AST Pending
ALT Pending
Alkaline Phosphatase Pending
Vital Signs:
Vital Signs
Temp Pulse Resp BP Pulse Ox
98.0 F 66 16 118/61 97
03/10/24 23:00 03/10/24 23:00 03/10/24 23:00 03/10/24 23:00 03/10/24 23:00
I&O
03/10/24 03/11/24 03/12/24
06:59 06:59 06:59
Intake Total 1650 / 1650 2290 / 2290
Output Total 750 / 750
Balance 900 / 900 2290 / 2290
[2024-03-11 07:49] VITALS: BP 126/77
[2024-03-11] MEDS: LEXAPRO 20 MG PO (08:27)
[2024-03-11] MEDS: PROTONIX IV 40 MG IV (08:27)
[2024-03-11] MEDS: NSS (PRESERVATIVE FREE) 10 ML IV (08:27)
[2024-03-11 08:36] LABS: Hematocrit 40.6 % (37.0-47.0); Hemoglobin 14.1 g/dL (12.0-16.0); Mean Corp Hgb Conc. 34.7 g/dL (33.0-37.0); Mean Corpuscular Volume 89.2 fL (81.0-99.0); Mean Platelet Volume 10.3 fL (7.4-10.4); Platelet Count 293 10^3/uL (130-400); Red Blood Cell Count 4.55 10^6/uL (4.20-5.40); Red Cell Dist. Width 14.1 % (11.5-14.5); White Blood Cell Count 7.9 10^3/uL (4.8-10.8)
[2024-03-11 08:56] LABS: F-Actin Antibody IgG 5 Units (0-19); Mitochondrial M2 Ab, IgG 2.1 Units (0.0-24.9)
[2024-03-11 09:14] LABS: ALT (SGPT) 687 U/L (0-35); AST (SGOT) 150 U/L (14-36); Albumin 3.4 g/dl (3.5-5.0); Alkaline Phosphatase 214 U/L (38-126); Blood Urea Nitrogen 6 mg/dl (7-17); Calcium 8.9 mg/dl (8.4-10.2); Carbon Dioxide 26 mmol/L (22-30); Chloride 105 mmol/L (98-107); Estimated Creatinine Clearance 113 ml/min; Glucose 99 mg/dl (70-99); Phosphorus 3.1 mg/dl (2.5-4.5); Potassium 4.5 mmol/L (3.5-5.1); Sodium 139 mmol/L (135-145); Total Protein 5.9 g/dl (6.3-8.2); eGFR > 60.00
[2024-03-11 09:39] LABS: ANA, IgG Reflex to HEp-2 None Detected (None Detected)
--- NOTE | 2024-03-11 11:16 | PTCARENOTE ---
pt [id number]. states no pain or nausea. mother at bedside questing procedures at hospital. expressing concern that she keeps getting different doctors. frustrated that is has taken this long to have her procedure done. asked what DR will be doing
ercp and was against that DR due to previous experience with him at bedside and an internet search review. asked for a new DR and to speak to administration. I reviewed hospital procedures on rotating and insulation manager DR's. reviewed plan of care for
patient. notified 2N manager pet to see pt and family. notified nursing wax room supervisor to see if ercp DR could be changed. DR Davis will be up to see pt to decide next step.
--- NOTE | 2024-03-11 12:18 | CM ---
CM following re: discharge planing.
Reviewed pt's chart, met with pt and pt's mother and pt's daughter at bedside.
CM consulted to assist pt with AD. AD brochure with AD form provided with explanation of how to complete.
D/C plan: home with anticipated no needs. Mother to transport at discharge.
CM will follow with discharge plan updates as hospitalization progresses
--- NOTE | 2024-03-11 13:45 | W.PN.GI.CBS2 ---
Today's Communication / Plan
-
diet today
Assessment / Plan
-
Pt with a hx of a cholecystectomy and 3 episodes of biliary colic with markedly improving lfts and improvement in pain. She had a MRCP that showed biliary ducts that were dilated as compared to MRCP less than 1 week before with no distinct stone
but with question (I did review both report and pictures)
She ideally needs an endoscopic ultrasound and if positive then ERCP. It is most likely that she has passed the stone. She is very hungry and wants to try a diet as she will not be getting a procedure today so for now:
1. low fat diet today and if pain will hold and put on for EUS/ERCP
2. if no pain and lfts resolve she can follow as an outpatient
3. if there is any question she will get an eus tomorrow to determine next steps
Subjective
Subjective
Date of Service: March 11, 2024
This patient has marked improvement of her abdominal pain. She only feels discomfort if she pushes deeply into her right side. She is hungry
Objective
Data Reviewed
Laboratory Data:
Laboratory Results
03/11/24 07:53
03/11/24 07:53
Laboratory Results
Phosphorus 3.1 mg/dl (2.5-4.5) 03/11/24 07:53
Magnesium 2.0 mg/dl (1.6-2.3) 03/11/24 07:53
Total Bilirubin 2.0 mg/dl (0.2-1.3) H D 03/11/24 07:53
AST 150 U/L (14-36) H 03/11/24 07:53
ALT 687 U/L (0-35) H* 03/11/24 07:53
Alkaline Phosphatase 214 U/L (38-126) H 03/11/24 07:53
Lipase 158 U/L (23-300) 03/08/24 21:52
Vital Signs and I&O:
Vital Signs
Temp Pulse Resp BP Pulse Ox
98.2 F 69 15 126/77 95
03/11/24 07:49 03/11/24 07:49 03/11/24 07:49 03/11/24 07:49 03/11/24 07:49
I&O
03/10/24 03/11/24 03/12/24
06:59 06:59 06:59
Intake Total 1650 / 1650 2290 / 2290
Output Total 750 / 750
Balance 900 / 900 2290 / 2290
Physical Exam
Physical Exam
HEENT: Anicteric
GI: Soft, Non Distended and Non Tender
Neuro: Non Focal
[2024-03-11 16:07] VITALS: BP 127/66
[2024-03-11 19:15] LABS: Hepatitis B Surface Antigen Negative (Negative)
[2024-03-11 19:32] LABS: Hepatitis B Surface Antibody Negative
[2024-03-11 19:35] LABS: Hepatitis C Antibody Negative (Negative)
[2024-03-11 23:59] VITALS: BP 142/80
[2024-03-12 07:05] VITALS: BP 131/74
[2024-03-12 07:19] LABS: Hematocrit 41.3 % (37.0-47.0); Hemoglobin 14.4 g/dL (12.0-16.0); Mean Corp Hgb Conc. 34.9 g/dL (33.0-37.0); Mean Platelet Volume 10.3 fL (7.4-10.4); Platelet Count 309 10^3/uL (130-400); Red Cell Dist. Width 13.8 % (11.5-14.5)
--- NOTE | 2024-03-12 07:37 | W.PN.HOSP.TC ---
Today's Communication/Plan
-
discharge
Assessment / Plan
Assessment / Plan
Physical
General: No acute distress appears comfortable at this time. All dressed and ready to go home
HEENT: Anicteric
Respiratory: Clear
Cardiac: Regular Rhythm
GI: Soft, Non Distended, Normal Bowel Sounds, Nontender
Skin: Warm and Dry
Neuro: AO x 3
Psych: Calm
A/P: Patient is a 43y F with PMH significant for obesity and anxiety / depression who presents to ED complaining of abdominal pain.
Acute Hepatitis / Suspected Choledocholithiasis
-pain control, antiemetic prn
-monitor LFTs trending down
- MRCP prior admission was unremarkable. Repeat however notes increase in CBD diameter suspicious for obstruction distal CBD
- Pain control, antiemetics, supportive care.
- Compazine prn nausea avoiding zofran d/t QT interaction with Lexapro recently resolved QT prolongation
03/11 GI eval appreciated
-low fat diet today and if pain will hold and put on for EUS/ERCP
-if no pain and lfts resolve she can follow as an outpatient
-if there is any question she will get an eus tomorrow to determine next steps
03/12 Patient tolerated diet. Pain and nausea free. LFTs improving. Discussed with GI ok to resume diet and discharge.
Headache
-prn Toradol (noted suspect allergy to celecoxib however patient endorses ibuprofen use without issues)
-protonix gi ppx while on toradol prn
QT prolongation resolved
Anxiety / Depression
- cont home Lexapro
Obesity due to excess calories
- Affects all aspects of care.
- Encourage healthy diet and increased activity with goal of weight loss.
- Caution with Zepbound and similar meds given GI issues.
DVT Prophylaxis: SCDs
Code Status: Full
Medically stable for discharge home with outpatient follow up recommendations.
Total Time Preparing Discharge __40 minutes including examination of the patient, summary of the hospital stay, instructions for continuing care to all relevant caregivers; and preparation of discharge records, prescriptions, and referral
forms if necessary.
Anticipated Discharge: Today
Subjective/Interval History
-
Date of Service: March 12, 2024
No acute distress. Ambulating without issues. Pain free denies nausea tolerated diet yesterday. Denies new acute issues, eager to go home, all dressed.
Objective Data
-
Labs:
Laboratory Results
03/12/24
05:59
WBC 8.0
Hgb 14.4
Hct 41.3
Plt Count 309
Sodium Pending
Potassium Pending
Chloride Pending
Carbon Dioxide Pending
BUN Pending
Creatinine Pending
Glucose Pending
Calcium Pending
Total Bilirubin Pending
AST Pending
ALT Pending
Alkaline Phosphatase Pending
Vital Signs:
Vital Signs
Temp Pulse Resp BP Pulse Ox
98.9 F 63 16 142/80 98
03/11/24 23:59 03/11/24 23:59 03/11/24 23:59 03/11/24 23:59 03/11/24 23:59
I&O
03/11/24 03/12/24 03/13/24
06:59 06:59 06:59
Intake Total 3490 / 3490 1959
Balance 3490 / 3490 1959
[2024-03-12 07:40] LABS: ALT (SGPT) 563 U/L (0-35); AST (SGOT) 122 U/L (14-36); Albumin 3.8 g/dl (3.5-5.0); Alkaline Phosphatase 179 U/L (38-126); Blood Urea Nitrogen 9 mg/dl (7-17); Calcium 9.5 mg/dl (8.4-10.2); Carbon Dioxide 23 mmol/L (22-30); Chloride 104 mmol/L (98-107); Estimated Creatinine Clearance 113 ml/min; Glucose 113 mg/dl (70-99); Phosphorus 4.3 mg/dl (2.5-4.5); Potassium 4.5 mmol/L (3.5-5.1); Sodium 138 mmol/L (135-145); Total Bilirubin 1.3 mg/dl (0.2-1.3); Total Protein 6.3 g/dl (6.3-8.2); eGFR > 60.00
[2024-03-12] MEDS: PROTONIX IV 40 MG IV (08:04)
[2024-03-12] MEDS: LEXAPRO 20 MG PO (08:04)
[2024-03-12] MEDS: NSS (PRESERVATIVE FREE) 10 ML IV (08:05)
--- NOTE | 2024-03-12 08:17 | W.PN.GI.CBS2 ---
Today's Communication / Plan
-
Tolerating diet and LFTs downtrending
Ok from GI perspective for hosp d/c today
OP FU with Dr Huff for EUS if needed.
Assessment / Plan
-
Liza is a 43yo W with h/o obesity s/p cholecystectomy who recently moved to [place] who presented with 3 episodes of biliary colic with markedly high LFTs in 1000s. She had a MRCP that showed biliary ducts that were dilated as compared to MRCP
less than 1 week before with no distinct stone but with question
Given resolution of of abd pain and downtrending LFTs suspect passed stone.
At this juncture ok from GI perspective for hosp d/c. Discussed outpatient FU with Dr Huff to discuss EUS and timing.
GI will sign off please call for questions.
Subjective
Subjective
Date of Service: March 12, 2024
Her abd pain resolved. She ate toast, eggs and routine dinner without issues. Eager for home d/c today
Objective
Data Reviewed
Laboratory Data:
Laboratory Results
03/12/24 05:59
03/12/24 05:59
Laboratory Results
Phosphorus 4.3 mg/dl (2.5-4.5) 03/12/24 05:59
Magnesium 2.0 mg/dl (1.6-2.3) 03/12/24 05:59
Total Bilirubin 1.3 mg/dl (0.2-1.3) 03/12/24 05:59
AST 122 U/L (14-36) H 03/12/24 05:59
ALT 563 U/L (0-35) H* 03/12/24 05:59
Alkaline Phosphatase 179 U/L (38-126) H 03/12/24 05:59
Lipase 158 U/L (23-300) 03/08/24 21:52
Vital Signs and I&O:
Vital Signs
Temp Pulse Resp BP Pulse Ox
98.9 F 63 16 142/80 98
03/11/24 23:59 03/11/24 23:59 03/11/24 23:59 03/11/24 23:59 03/11/24 23:59
I&O
03/11/24 03/12/24 03/13/24
06:59 06:59 06:59
Intake Total 3490 / 3490 1959
Balance 3490 / 3490 1959
Physical Exam
Physical Exam
GEN: No acute distress, conversant, pleasant obese body habitus
HEENT: anicteric, extraocular movements intact, clear oropharynx without exudates
GI: soft, mildy-distended, not tender to palpation, normal active bowel sounds, no hepatosplenomegaly
EXT: warm, well perfused, no edema bilaterally
NEURO: AAOx3, non-focal
--- NOTE | 2024-03-12 09:12 | W.DCSUMMARY ---
Discharge Summary
Discharge Data
Date of Admission: 03/09/24
Date of Discharge: 03/12/24
-
Pending Results: No
Discharge Plan
-
Patient Disposition: Home (Routine Discharge)
Discharge Diagnosis/Procedures: Acute Hepatitis/Hyperbilirubinemia Suspected due to Biliary Obstruction Choledocholithiasis, Passed Gallstone
Obesity
QT prolongation Resolved
Condition: Good
Diet: Low Fat
Activity: As tolerated
Driving Restrictions: As prior to admission
Bathing Restrictions: None
Blood Work: Please repeat CMP with primary care provider in 1 week of discharge.
Activity Restrictions/Additional Instructions:
Please follow up with primary care provider in 1 week of discharge and GI in 2-4 weeks of discharge.
Instructions: Low-fat diet
Referrals:
NONE,* [Family Provider] -
Prescriptions:
Continued
escitalopram oxalate [Lexapro] 20 mg Tablet
20 mg PO DAILY
Dyanavel XR 10 mg Tablet, Ir - Er, Biphasic 24hr
10 mg PO DAILY
Discharge Orders:
Discharge Patient (As Directed); Ordered 03/12/24
Ordered By: Thierry Gooden
Discharge Date and Time
Print Language: LAO
--- NOTE | 2024-03-12 10:21 | CM ---
CM following re: discharge planing.
Reviewed pt's chart, met with pt.
Discharge order noted. Pt is awre and she stated her mother will transport home.
D/C plan: home with no needs. Mother to transport
No discharge needs identified at this time.
[2024-03-12 11:09] VITALS: BP 129/78
== END 2024-03-12 11:59 | disposition home or self-care (01) | DRG 445 ==
LOC: 2 NORTH 01:30
PROVIDERS: Emergency Medicine; Physician Assistant; ADMITTING PHYSICIAN Hospitalist; ATTENDING PHYSICIAN Internal Medicine; CONSULT PHYSICIAN Internal Medicine; EMERGENCY PHYSICIAN Emergency Medicine
DX: K80.51 Calculus of bile duct without cholangitis or cholecystitis with obstruction (principal); B17.9 Acute viral hepatitis, unspecified; K76.0 Fatty (change of) liver, not elsewhere classified; K76.89 Other specified diseases of liver; F32.A Depression, unspecified; E66.09 Other obesity due to excess calories; Z68.39 Body mass index [BMI] 39.0-39.9, adult; E80.6 Other disorders of bilirubin metabolism; K58.8 Other irritable bowel syndrome; F17.210 Nicotine dependence, cigarettes, uncomplicated; F41.9 Anxiety disorder, unspecified; F90.9 Attention-deficit hyperactivity disorder, unspecified type; R94.31 Abnormal electrocardiogram [ECG] [EKG]; R79.89 Other specified abnormal findings of blood chemistry; Z79.899 Other long term (current) drug therapy; Z90.49 Acquired absence of other specified parts of digestive tract; Z88.8 Allergy status to other drugs, medicaments and biological substances; Z91.040 Latex allergy status; Z91.048 Other nonmedicinal substance allergy status
CPT/HCPCS: 74181; 76705; 80048; 80053; 80076; 81003; 81015; 83605; 83690; 83735; 84100; 84703; 85025; 85027; 86015; 86038; 86381; 86705; 86706; 86709; 86803; 87340; 93005; 96361; 96374; 96375; 96376; 99285; 99406

== ENCOUNTER 2024-05-21 06:06 | Day surgery (SDC) | payer BC, SELFPAY ==
[2024-05-21] VITALS (9 sets, daily range): BP systolic 105–132; BP diastolic 61–76; BMI 39.1
== END 2024-05-21 13:45 | disposition home or self-care (01) ==
LOC: SDS 06:06
PROVIDERS: ATTENDING PHYSICIAN Internal Medicine Gastroenterology
DX: K83.4 Spasm of sphincter of Oddi (principal); R74.8 Abnormal levels of other serum enzymes; R93.3 Abnormal findings on diagnostic imaging of other parts of digestive tract; Z90.49 Acquired absence of other specified parts of digestive tract
CPT/HCPCS: 43274; 43264; 43273; 43237; 74330; 76000; C1769; C2617; C2625

== ENCOUNTER 2024-06-12 06:28 | Day surgery (SDC) | payer BC, SELFPAY ==
[2024-06-12 14:09] VITALS: BP 134/81; BMI 39.3
[2024-06-12 14:22] VITALS: BMI 39.3
[2024-06-12 15:50] VITALS: BP 103/60
[2024-06-12 16:00] VITALS: BP 109/73
[2024-06-12 16:15] VITALS: BP 109/86
== END 2024-06-12 16:29 | disposition home or self-care (01) ==
LOC: SDS 06:28
PROVIDERS: ATTENDING PHYSICIAN Internal Medicine Gastroenterology
DX: Z09 Encounter for follow-up examination after completed treatment for conditions other than malignant neoplasm (principal)
CPT/HCPCS: 43247